=== PATIENT | male | born 1935 | race Caucasian/White ===

== ENCOUNTER → 2016-07-07 | Outpatient (CLI) | payer OTHER, MEDICARE ==
[~2016-07-07] MED LIST: ASPCH81; B-COCAP2 PO; CHOL100010 PO; CRD4; GLC5 PO; GLC500; INSDGIPEN SC; LEVO125T7; LOSA50TA6 PO; LOVA20TA4; METO25TA3; PRAV20TA PO; PRS5 PO; TAMS0.4C59 PO
--- NOTE | 2016-07-11 12:35 | CODING QUERY MEDICAL NECESSITY ---
SUPPORTING DIAGNOSIS NEEDED A supporting diagnosis is required for the test/procedure performed on this patient in order for us to be reimbursed by the patient's insurance. Please provide a supporting diagnosis for the following test/procedure listed below next to the test name along with your signature. *If there is no additional diagnosis for this patient that would support the following test/procedure please document that below next to the test/procedure. Test(s)/Procedure(s) that require a supporting diagnosis: DOS 07/07 * Factor V Leiden DIAGNOSIS: Provider Signature: Date: Thank you Darby Subramanian Health Information Management Once completed, please kindly fax back to [phone] For questions please call [phone]
== END | disposition home or self-care (01) ==
LOC: C.LABBC 09:03
PROVIDERS: ATTEND Family Medicine
DX: Z83.2 Family history of diseases of the blood and blood-forming organs and certain disorders involving the immune mechanism (principal)

== ENCOUNTER → 2016-07-09 | Outpatient (CLI) | payer OTHER, MEDICARE ==
[2016-07-09 11:16] LABS: BLOOD UREA NITROGEN 17 mg/dl (7-18); BUN/CREATININE RATIO 14.3 (10-20); CARBON DIOXIDE 29 mmol/L (21-32); CHLORIDE 103 mmol/L (98-107); GLUCOSE 138 mg/dl (70-99); POTASSIUM 4.2 mmol/L (3.5-5.1); SODIUM 141 mmol/L (136-145)
[2016-07-09 11:20] LABS: ESTIMATED AVERAGE GLUCOSE 192 mg/dl; HA1C FLAG Normal (Normal)
[2016-07-09 11:23] LABS: CALCIUM 9.5 mg/dl (8.5-10.1)
[2016-07-09 11:26] LABS: ALT/SGPT 50 U/L (12-78); CHOLESTEROL 133 mg/dl (0-200); CHOLESTEROL/HDL RATIO 3.1; HDL CHOLESTEROL 43 mg/dl; LDL CHOLESTEROL CALCULATED 41 mg/dl; THYROID STIMULATING HORMONE 0.492 uIu/ml (0.300-4.500); TRIGLYCERIDES 246 mg/dl (0-150); VERY LOW DENSITY LIPOPROT CALC 49 mg/dl
== END | disposition home or self-care (01) ==
LOC: C.LABBC 08:13
PROVIDERS: ATTEND Family Medicine
DX: E11.9 Type 2 diabetes mellitus without complications (principal); E78.00 Pure hypercholesterolemia, unspecified; I10 Essential (primary) hypertension; E03.9 Hypothyroidism, unspecified

== ENCOUNTER → 2016-10-14 | Outpatient (CLI) | payer OTHER, MEDICARE ==
[2016-10-14 11:16] LABS: BLOOD UREA NITROGEN 22 mg/dl (7-18); BUN/CREATININE RATIO 15.8 (10-20); CALCIUM 9.3 mg/dl (8.5-10.1); CARBON DIOXIDE 25 mmol/L (21-32); CHLORIDE 105 mmol/L (98-107); GLUCOSE 277 mg/dl (70-99); POTASSIUM 4.4 mmol/L (3.5-5.1); SODIUM 137 mmol/L (136-145)
[2016-10-14 11:19] LABS: ESTIMATED AVERAGE GLUCOSE 200 mg/dl; HA1C FLAG Normal (Normal)
== END | disposition home or self-care (01) ==
LOC: C.LABBC 08:07
PROVIDERS: ATTEND Urology
DX: E11.9 Type 2 diabetes mellitus without complications (principal); N40.0 Benign prostatic hyperplasia without lower urinary tract symptoms

== ENCOUNTER → 2017-03-24 | Outpatient (CLI) | payer OTHER, MEDICARE ==
[2017-03-24 11:40] LABS: HEMOGLOBIN A1C 8.9 % (4.5-5.6)
[2017-03-24 12:07] LABS: ALT/SGPT 45 U/L (12-78); BLOOD UREA NITROGEN 12 mg/dl (7-18); CALCIUM 9.3 mg/dl (8.5-10.1); CARBON DIOXIDE 32 mmol/L (21-32); GLUCOSE 128 mg/dl (70-99); SODIUM 137 mmol/L (136-145)
[2017-03-24 12:21] LABS: CHOLESTEROL 135 mg/dl (0-200); LDL CHOLESTEROL CALCULATED 53 mg/dl
== END | disposition home or self-care (01) ==
LOC: C.LABBC 08:17
PROVIDERS: ATTEND Family Medicine
DX: E11.9 Type 2 diabetes mellitus without complications (principal); E78.00 Pure hypercholesterolemia, unspecified; E03.9 Hypothyroidism, unspecified

== ENCOUNTER 2022-03-31 08:15 | Observation (INO) ==
--- NOTE | 2022-03-24 11:01 | Anesthesiology Consultation ---
Date of Service March 24, 2022 Assessment & Plan (1) Encounter for pre-operative examination: Chart Review Chart Review: Acceptable Risk for Surgery and Patient NOT seen in Pre Admission Testing - Check BSG AM DOS -COVID screening: Per PAT nursing assessment on 03/24/22. No known COVID-19 positive contacts or current COVID-19 related symptoms. Travel screen negative. Patient vaccinated for Covid. At surgeon discretion if preop Covid testing being done. History Surgery Operation Date: 03/31/22 11:10 Proposed Procedures p Photoselective Vaporization Prostate using the Greenlight Laser - Luis F Burgess, Height/Weight Height: 5 ft 9 in Weight: 86.183 kg Allergies Allergy/AdvReac Type Severity Reaction Status Date / Time lisinopril Allergy Intermediate muscle Verified 03/24/22 09:49 pain, rash Medications Home Medications Medication Instructions Recorded Confirmed Last Taken rosuvastatin 5 mg tablet 2.5 mg PO QPM 10/23/18 03/24/22 02/16/19 cinnamon bark 500 mg capsule 500 mg PO BID 10/25/18 03/24/22 02/17/19 (Cinnamon) omega-3 fatty acids 1,000 mg 1,200 mg PO QAM 10/25/18 03/24/22 02/17/19 capsule vitamin B complex (B 1 tab PO QAM 10/25/18 03/24/22 02/17/19 Complex-Vitamin B12 tablet) desonide 0.05 % topical ointment 1 appln topical BID PRN PRN #1 g 02/16/19 03/24/22 Unknown albuterol sulfate 90 mcg/actuation 2 puffs inhalation Q6H PRN 02/17/19 03/24/22 Unknown aerosol inhaler (Ventolin HFA) shortness of breath or wheezing #8 grams aspirin 81 mg tablet,delayed 81 mg PO QAM 02/17/19 03/24/22 02/17/19 release blood sugar diagnostic (MyDocTouch #100 ea 10/29/21 03/24/22 Unknown Ultra Test strips) blood-glucose meter (OneTouch #1 ea 10/29/21 03/24/22 Unknown Ultra2 Meter kit) lancets (MyDocTouch UltraSoft #100 ea 10/29/21 03/24/22 Unknown Lancets) semaglutide 0.25 mg or 0.5 mg (2 0.5 mg subcut WK 12/18/21 03/24/22 Unknown mg/1.5 mL) subcutaneous pen injector (Ozempic) insulin glargine 100 unit/mL (3 35 - 40 unit subcut BID 01/09/22 03/24/22 Unknown mL) subcutaneous pen (Lantus Solostar U-100 Insulin) metformin 1,000 mg tablet 1,000 mg PO BID #180 tabs 01/24/22 03/24/22 Unknown metoprolol tartrate 50 mg tablet 50 mg PO BID #180 tabs 01/24/22 03/24/22 Unknown ascorbic acid (vitamin C) 1,000 mg 1,000 mg PO QAM 03/24/22 03/24/22 Unknown tablet,extended release (Vitamin C ER) finasteride 5 mg tablet 5 mg PO QAM 03/24/22 03/24/22 Unknown levothyroxine 175 mcg tablet 175 mcg PO QAM 03/24/22 03/24/22 Unknown potassium 99 mg tablet 99 mg PO Q OTHER DAY 03/24/22 03/24/22 Unknown tamsulosin 0.4 mg capsule (Flomax) 0.4 mg PO QAM 03/24/22 03/24/22 Unknown Past Medical History Medical History (Updated 03/24/22 @ 11:05 by Purnima Pisano PA-C) Anemia Stable Asthma rare res inh use > can't remember last use BPH (benign prostatic hyperplasia) CKD (chronic kidney disease) stage 3, GFR 30-59 ml/min Diabetes mellitus type 2, insulin dependent Uses dexcom Diabetic peripheral neuropathy Factor V Leiden mutation Heterozygous; no hx of DVT or PE with patient (sister was dx'ed with Factor V mutation which prompted patient to get tested), no AC needed per 2017 heme note HTN, goal below 140/90 Hypercholesterolemia Hypothyroidism Prostatic hyperplasia Rhinitis, nonallergic Sensorineural hearing loss (SNHL) of both ears Past Family History Family History Unknown Diabetes Heart disease History of nephrolithiasis Mother Diabetes Breast cancer Colorectal cancer Father Myocardial infarction Sister Factor V Leiden mutation Denies family history of Ovarian cancer Prostate cancer Past Surgical History Surgical History History of cataract surgery bilat History of colonoscopy History of tooth extraction Hx of melanoma excision back S/P prostatectomy S/P wisdom tooth extraction Social History Smoking Status: Former smoker tobacco type: cigarettes Do You Dip or Chew Tobacco: No Smoking End Date: age 50 Hx Alcohol Use: Yes Alcohol type: beer, wine and hard liquor alcohol intake frequency: a few times a month Hx Substance Use: No substance use type: does not use Lab Results Anesthesia Preop Results Results Anesthesia Widget: WBC 6.59 K/ul (4.8-10.8) 03/21/22 Hgb 12.0 g/dl (14.0-18.0) L 03/21/22 Hct 35.5 % (40.1-51.0) L 03/21/22 Plt 215 K/uL (130-400) 03/21/22 Na 136 mmol/L (136-145) 03/21/22 K 4.1 mmol/L (3.5-5.1) 03/21/22 Cl 102 mmol/L (98-107) 03/21/22 CO2 25 mmol/L (21-32) 03/21/22 BUN 19 mg/dl (6-23) 03/21/22 Creat 1.23 mg/dl (0.6-1.4) 03/21/22 Glucose Level 264 mg/dl (70-99(Fasting)) H 03/21/22 Testing Laboratory Results 03/21/22= URINE CULTURE: No growth 12/30/21= HGB A1C: 7.2 Electrocardiogram Date: 03/21/22 Sinus rhythm with first-degree AV block with occasional PVCs and PACs at 77 bpm Inferior infarct (cited on or before February 17, 2019) When compared to EKG from February 17, 2019PACs are now present, ME has increased per cardio Chest X-Ray Date: 03/21/22 Findings: + NAD
[~2022-03-31 08:15] MED LIST changes: -ASPCH81; -B-COCAP2 PO; -CHOL100010 PO; -CRD4; -GLC5 PO; -GLC500; -INSDGIPEN SC; -LEVO125T7; -LOSA50TA6 PO; -LOVA20TA4; +LR 15ML/HR IV SCH; -METO25TA3; -PRAV20TA PO; -PRS5 PO; -TAMS0.4C59 PO; +ceFAZolin 2000MG 2,000 MG/15 ML SYR IV SCH
[2022-03-31] MEDS ORDERED: BELLADONNA/OPIUM SUPP 60 MG SUPP PR PRN (09:06)
[2022-03-31] MEDS ORDERED: oxyCODONE/ACETAMINOPHEN 5mg/325mg TAB PO PRN (09:06)
[2022-03-31] MEDS ORDERED: PHENAZOPYRIDINE HCL 200 MG TAB PO PRN (09:06)
[2022-03-31] MEDS ORDERED: MoRPHine SULFATE 2 MG/ML CARP IV PRN (09:06)
[2022-03-31] MEDS ORDERED: ONDANSETRON INJ 2 MG/ML 2 ML VIAL IV PRN ×2 (09:06→09:41)
--- NOTE | 2022-03-31 09:06 | History & Physical Bridge Note ---
Date of Service March 31, 2022 History & Physical Bridge Note I have examined the patient, reviewed the History & Physical and in the interval since the performance of the History & Physical I have noted the following changes of clinical significance: no changes noted
[2022-03-31] MEDS ORDERED: ALBUTEROL HFA 8 GM INHALER INH PRN (09:13)
[2022-03-31] MEDS ORDERED: ceFAZolin 2000MG 2,000 MG/15 ML SYR IV SCH (09:15)
[2022-03-31] MEDS ORDERED: fentaNYL citrate 100 MCG/2 ML VIAL ONE ×2 (09:35→11:18)
[2022-03-31] MEDS ORDERED: ATROPINE SULFATE 0.1 MG/ML 10ML SYR IV PRN (09:41)
[2022-03-31] MEDS ORDERED: PROMETHAZINE HCL 12.5 MG in SODIUM CHLORIDE 0.9% 50 ML IV PRN (09:41)
[2022-03-31] MEDS ORDERED: fentaNYL citrate 100 MCG/2 ML VIAL IV PRN (09:41)
[2022-03-31] MEDS ORDERED: ePHEDrine sulfate 50 MG/ML AMP IV PRN (09:41)
[2022-03-31] MEDS ORDERED: HYDROmorphone INJ 2 MG/ML SYR/VIAL IV PRN (09:41)
[2022-03-31] MEDS ORDERED: LIDOCAINE 2% MPF LOCAL 5 ML VIAL INFIL ONE (10:33)
[2022-03-31] MEDS ORDERED: ONDANSETRON INJ 2 MG/ML 2 ML VIAL ONE (10:33)
[2022-03-31] MEDS ORDERED: PROPOFOL IV EMULSION 10 MG/ML 20 ML VIAL IV ONE (10:33)
[2022-03-31] MEDS ORDERED: ePHEDrine sulfate 50 MG/ML SYR ONE (10:34)
[2022-03-31] MEDS ORDERED: PHENYLEPHRINE 100MCG/ML 5ML SYR ONE (10:34)
[2022-03-31 10:37] LABS: Basophils # (auto) 0.06 K/uL (0-0.2); Basophils % (auto) 0.7 %; Eosinophils % (auto) 4.5 %; Hematocrit (blood only) 37.2 % (40.1-51.0); Hemoglobin 12.9 g/dl (14.0-18.0); Immature Granulocytes # (auto) 0.23 K/uL (0.00-0.02); Immature Granulocytes % (auto) 2.6 %; Lymphocytes % (auto) 27.2 %; Mean Corpuscular Hemoglobin 30.5 pg (25.0-34.0); Mean Corpuscular Hgb Conc 34.7 g/dL (32.0-36.0); Mean Corpuscular Volume 87.9 fL (80.0-100.0); Mean Platelet Volume 10.7 fL (9.4-12.4); Monocytes # (auto) 0.42 K/uL (0.24-0.82); Monocytes % (auto) 4.8 %; Neutrophils # (auto) 5.32 K/uL (1.4-6.5); Neutrophils % (auto) 60.2 %; Platelet Count 227 K/uL (130-400); RDW Coefficient of Variation 13.7 % (11.5-14.5); RDW Standard Deviation 43.5 fL (36.4-46.3); Red Blood Count 4.23 M/uL (4.63-6.08); White Blood Count 8.83 K/ul (4.8-10.8)
[2022-03-31 11:00] LABS: Albumin Globulin Ratio 1.5 (0.9-2); Albumin Level 4.1 gm/dl (3.4-5.0); BUN Creatinine Ratio 13.5 (10-20); Bilirubin,Total 0.5 mg/dl (0.2-1.0); Calcium 9.2 mg/dl (8.5-10.1); Creatinine Clr Calc Pharmacy 43.6 ml/min; Est GFR (African American) 60.3 ml/min; Globulin 2.7 gm/dl (2.5-4.0); Potassium 4.1 mmol/L (3.5-5.1); Total Protein 6.8 gm/dl (6.0-8.3)
[2022-03-31] MEDS ORDERED: BELLADONNA/OPIUM SUPP 60 MG SUPP PR ONE ×2 (11:57→12:01)
--- NOTE | 2022-03-31 12:15 | Operative Report ---
PG Post Operative Report Pre & Post Diagnosis Operation Date: 03/31/22 10:00 Pre-Op Diagnosis: Incomplete Emptying Bladder Prostatic Hyperplasia Post-Op Diagnosis: Incomplete Emptying Bladder Prostatic Hyperplasia I identified the patient and participated in the time-out.: Yes Procedure Operation Date: 03/31/22 10:00 Actual Procedures p Photoselective Vaporization of the Prostate (PVP) Using the Greenlight Laser with Laser enucleation of prostate (Not Applicable) - Luis F Burgess, Surgeon Luis F Burgess, II, DO Public Health Clinical Nurse Specialist None Estimated Blood Loss 5 Findings Consistent with Post-Op Diagnosis Large regrowth of Prostate with obstruction. 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 Had PVP in past and irregular regrowth causing obstruction. Risks and benefits discussed at length. Description of Procedure Patient was consented and brought back to the operating room. Patient was placed under anesthesia in the supine position and moved to the dorsal lithotomy position. Patient was prepped and draped in the regular sterile fashion. A time out was completed. A 30degree Cystoscope was placed into the bladder and the entire bladder was examined. The UO's were identified as well as the bladder neck, trigone, dome, and the other important landmarks. The prostatic urethra and large lobes/adenoma was assessed and the veru and bladder neck identified and area/size was assessed. Significant regrowth at the lateral lobes and median lobe with irregular distribution. The cystoscope with laser bridge and the Greenlight laser fiber were selected. Starting at the 5 and 7 o'clock positions, a channel was created from bladder neck to the veru. A channel was further formed between the two areas. No major bleeding or areas of concern. The resection then started at the 1 and 11 oclock positions and swept down to the channel. The tissue was resected down to capsule fibers. The UO's, veru, and bladder neck were monitored throughout the process. Along the left lateral lobe, a significant bulge of regrowth was noted and was able to be isolated and enucleated in two pieces. The Adenoma pieces were enucleated sweeping down along the capsule to the 5 o'clock position. The tissue was freed and displaced into the bladder. All bleeding was controlled. Two large pieces were enucleated. The Specimen was removed and sent for analysis. The resection bed and any bleeding areas were fulgurated/cauterized and the entire area inspected. All bleeding was controlled. The bladder was inspected a final time. The bladder was emptied and irrigated. All specimen and debris was removed. The scope was removed with the bladder partially full. A catheter was placed and balloon elevated. This was easily irrigated. The patient was cleaned, aroused from anesthesia, and transferred to the pacu in stable condition having tolerated the procedure well with no complications. I was present and participated in all aspects of the procedure. A belladonna and opium suppository was placed. The patient will be monitored in the PACU until transferred. Will observe overnight with plans to continue CBI through night. Will plan catheter removal likely in approx 1-2 weeks. I attest to the content of the Intraoperative Record and any orders documented therein. Any exceptions are noted below.
--- NOTE | 2022-03-31 13:27 | Anesthesiology Progress Note ---
Date of Service March 31, 2022 Anesthesia Post Procedure Vital Signs Vital Signs: Temp Pulse Pulse Resp BP Pulse Ox O2 Del Method 03/31/22 12:55 36.4 C L 72 14 145/83 H 95 Room Air 03/31/22 12:45 75 19 155/75 H 96 Room Air 03/31/22 12:35 79 14 147/68 H 95 Room Air 03/31/22 12:25 82 18 153/81 H 100 Oxymask 03/31/22 12:16 36.0 C L 88 16 100/60 98 Oxymask 03/31/22 08:51 36.4 C L 70 20 123/73 O2 Flow Rate 03/31/22 12:55 03/31/22 12:45 03/31/22 12:35 03/31/22 12:25 7 03/31/22 12:16 7 03/31/22 08:51 Transfer of Care Handoff Completed per policy Notes Mental Status: alert / awake / arousable and participated in evaluation Patient Amnestic to Procedure: Yes Nausea / Vomiting: adequately controlled Pain: adequately controlled Airway Patency, RR, SpO2: stable & adequate BP & HR: stable & adequate Hydration State: stable & adequate Anesthetic Complications: no major complications apparent
[2022-03-31] MEDS ORDERED: DESONIDE CR 15 GM TUBE EXT PRN (14:04)
[2022-03-31] MEDS ORDERED: PHARMACY GLYCEMIC MGMT CONSULT PRN (14:18)
[2022-03-31] MEDS ORDERED: GLUCOSE 40% GEL 15 GM TUBE PO PRN (14:45)
[2022-03-31] MEDS ORDERED: DEXTROSE 50% 50 ML SYRINGE IV PRN (14:45)
[2022-03-31] MEDS ORDERED: CARBOHYDRATES FOR HYPOGLYCEMIA PO PRN (14:45)
[2022-03-31] MEDS ORDERED: GLUCOSE 10 TAB/TUBE PO PRN (14:45)
[2022-03-31] MEDS ORDERED: GLUCAGON FOR INJ 1 MG VIAL IM PRN (14:45)
--- NOTE | 2022-03-31 14:53 | Pharmacy Report ---
Pharmacy Glycemic Short Note 2 - Date of Service March 31, 2022 - Glycemic Short BSG Results (Last 24 hours): 03/31/22 03/31/22 03/31/22 08:59 10:13 12:19 Glucose 117 H POC Glucose 107 H 101 H OUTPATIENT ANTIDIABETIC REGIMEN: * Lantus 30-40 units bid, metformin, ozempic ASSESSMENT: * 86 year old male now s/p cystoscopy, POD 0 - Patient is type 2 diabetic managed on insulin at home. Per notes, patient took full dose of basal insulin last night * Fasting BSG 107 mg/dL - anticipate diet starting postop. Post op BSG 101 mg/dL - will utilize stress of 2 for novolog for now. Plan to start Lantus 10-20 units BID starting this evening PLAN FOR INPATIENT GLYCEMIC CONTROL: * Hold outpatient oral diabetes medications * Basal insulin * Lantus 10-20 units SQ BID * Bolus insulin * NovoLog per scale ACHS or Q6hrs while NPO * Goal Range: Low 110 mg/dL - High 140 mg/dL * Correction Factor: 30 mg/dL/unit * Nutritional / Prandial insulin per carb ratio of 1 unit per 10 grams CHO consumed
--- NOTE | 2022-03-31 15:06 | Hospitalist Consultation ---
Date of Consultation March 31, 2022 Assessment & Plan (1) BPH w urinary obs/LUTS: - s/p photoselective vaporization of prostate, POD #0, EBL 5cc, no complications, with continuous CBI overnight. - Pain/ABX/IVF/diet/drain management/transfusion needs/activity per primary team - Rescue Narcan ordered for over sedation PRN - VTE prophylaxis per primary service- SCDs in place - CBC and BMP in AM. - Baseline renal function: Cr 1.23, GFR 531/6 - Baseline Hgb: 12.0 on 03/21 - Continue Flomax, finasteride. (2) Diabetes mellitus type 2, insulin dependent: - [employer]--> Lantus BID, metformin, ozempic. - glycemic consult placed, hold home meds. - Lantus 10-20 units BID with SSI goal 110-140, CF 30, CR 10. (3) CKD (chronic kidney disease) stage 3, GFR 30-59 ml/min: - Cr 1.26, GFR 52. - Avoid nephrotoxins, renally dose medications as able. - BMP in AM. (4) Factor V Leiden mutation: - No history fo DVT/PE. Tested due to familial history of such. (5) HTN, goal below 140/90: - Continue metoprolol. (6) Hypercholesterolemia: - Continue rosuvastatin. (7) Hypothyroidism: - Continue levothyroxine. (8) Anemia: - Hg 12.9, stable with outpatient labs. - Monitor on CBC in AM. Supervising Physician Co-Signing Physician Notes I personally saw and examined the patient. I verified all martin points and agree with Lashonda Barnard PA-C with the following exceptions and/or additions: 86-year-old male POD#0 Photoselective Vaporization of the Prostate (PVP) Using the Greenlight Laser with Laser enucleation of prostate O/E A&Ox3, HS1+2, no murmurs, RRR, Chest CTAB, Abdo SNT A/P Patient currently prescribed Flomax but no finasteride. Will defer this to his urologist. Pharmacy consulted for glycemic control. Vital signs acceptable. Thank you for the consult. We will continue to see patient while he is admitted. History of Present Illness Reason for Consultation: post-op medical management Requesting Physician: Luis F Burgess II, DO Attending Physician: Luis F Burgess II, DO History of Present Illness Rob Olvera is an 86-year-old male with a past medical history significant for insulin-dependent diabetes, hypertension, hyperlipidemia factor V Leiden deficiency, CKD, BPH, and hypothyroidism who was admitted today, 03/31 for a photo selective vaporization of the prostate with Dr. Burgess. Hospitalist group was consulted for post-operative medication management. Today, he is POD#0 and feels well. Denies fever/chills, weakness, chest pain, palpitations, shortness of breath, cough, orthopnea, abdominal pain, nausea, vomiting, dysuria. Allergies Allergy/AdvReac Type Severity Reaction Status Date / Time lisinopril Allergy Intermediate muscle Verified 03/31/22 08:58 pain, rash Home Medications Medication Instructions Recorded Confirmed Type rosuvastatin 5 mg tablet 2.5 mg PO QPM 10/23/18 03/31/22 History cinnamon bark 500 mg capsule 500 mg PO BID 10/25/18 03/31/22 History (Cinnamon) omega-3 fatty acids 1,000 mg 1,200 mg PO QAM 10/25/18 03/31/22 History capsule vitamin B complex (B 1 tab PO QAM 10/25/18 03/31/22 History Complex-Vitamin B12 tablet) desonide 0.05 % topical ointment 1 appln topical BID PRN PRN #1 g 02/16/19 03/31/22 History albuterol sulfate 90 mcg/actuation 2 puffs inhalation Q6H PRN 02/17/19 03/31/22 Rx aerosol inhaler (Ventolin HFA) shortness of breath or wheezing #8 grams aspirin 81 mg tablet,delayed 81 mg PO QAM 02/17/19 03/31/22 History release blood sugar diagnostic (OneTouch #100 ea 10/29/21 03/24/22 Rx Ultra Test strips) blood-glucose meter (OneTouch #1 ea 10/29/21 03/24/22 Rx Ultra2 Meter kit) lancets (TongbanjieTouch UltraSoft #100 ea 10/29/21 03/24/22 Rx Lancets) semaglutide 0.25 mg or 0.5 mg (2 0.5 mg subcut WK 12/18/21 03/31/22 History mg/1.5 mL) subcutaneous pen injector (Ozempic) insulin glargine 100 unit/mL (3 35 - 40 unit subcut BID 01/09/22 03/31/22 History mL) subcutaneous pen (Lantus Solostar U-100 Insulin) metformin 1,000 mg tablet 1,000 mg PO BID #180 tabs 01/24/22 03/31/22 Rx metoprolol tartrate 50 mg tablet 50 mg PO BID #180 tabs 01/24/22 03/31/22 Rx ascorbic acid (vitamin C) 1,000 mg 1,000 mg PO QAM 03/24/22 03/31/22 History tablet,extended release (Vitamin C ER) finasteride 5 mg tablet 5 mg PO QAM 03/24/22 03/31/22 History levothyroxine 175 mcg tablet 175 mcg PO QAM 03/24/22 03/31/22 History potassium 99 mg tablet 99 mg PO Q OTHER DAY 03/24/22 03/31/22 History tamsulosin 0.4 mg capsule (Flomax) 0.4 mg PO QAM 03/24/22 03/31/22 History cephalexin 500 mg capsule 500 mg PO BID 5 days #10 caps 04/01/22 Rx docusate sodium 100 mg capsule 100 mg PO BID #60 caps 04/01/22 Rx (Colace) Patient History Medical History Anemia Stable Asthma rare res inh use > can't remember last use BPH (benign prostatic hyperplasia) CKD (chronic kidney disease) stage 3, GFR 30-59 ml/min Diabetes mellitus type 2, insulin dependent Uses dexcom Diabetic peripheral neuropathy Factor V Leiden mutation Heterozygous; no hx of DVT or PE with patient (sister was dx'ed with Factor V mutation which prompted patient to get tested), no AC needed per 2017 heme note HTN, goal below 140/90 Hypercholesterolemia Hypothyroidism Prostatic hyperplasia Rhinitis, nonallergic Sensorineural hearing loss (SNHL) of both ears Surgical History History of cataract surgery bilat History of colonoscopy History of tooth extraction Hx of melanoma excision back S/P prostatectomy S/P wisdom tooth extraction Family History Unknown Diabetes Heart disease History of nephrolithiasis Mother Diabetes Breast cancer Colorectal cancer Father Myocardial infarction Sister Factor V Leiden mutation Denies family history of Ovarian cancer Prostate cancer Social History Smoking Status: Former smoker Tobacco Type: Cigarettes Age Started Using Tobacco: 20; Age Quit Using Tobacco: 40; packs per day: 1; Second Hand Exposure: No; Hx Alcohol Use: Yes Alcohol type: beer, wine and hard liquor Alcohol Intake Frequency: 2-3 x/Week Hx Substance Use: No Preferred Language: Nepalese Communication Ability: Effective Visual Impairment: No Limitations Hearing Ability: Use of Hearing Aid Real Estate Manager Required: No Beliefs That Will Affect Care: None marital status: Current Living Situation: Spouse current occupational status: retired 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 Feels Safe at Home: Yes Childhood Exposure to Second-Hand Smoke: Yes Dental Care, Regularly: Yes Physical Activity Frequency: 3-4 Times per Week Seatbelt Use: always Sunscreen Use: Yes Assistive Devices: Glasses and Hearing Aid - Bilateral Review of Systems Review of Systems: Constitutional: No fever/chills, weakness, fatigue, myalgias, anorexia, night sweats Eyes: No diplopia, no worsening or blurred vision ENT: normal hearing, no trouble swallowing Respiratory: No cough, sputum, dyspnea at rest or on exertion Cardiovascular: No chest pain, tightness or palpitations Abdomen: No pain, nausea, vomiting, diarrhea or constipation : Denies dysuria, hematuria, increased urgency/frequency, urinary retention Musculoskeletal: No joint pain, calf pain, swelling Neurologic: No weakness, numbness/tingling, or balance problems Psychiatric: No anxiety or depression Skin: No rash or itch Physical Exam Physical Exam: General: awake, alert, no apparent distress Head: Normocephalic, atraumatic ENT: PERRL, EOMI, no pharyngeal exudate, mucous membranes moist Chest: Clear to auscultation, on room air, no adventitious breath sounds Cardiac: Regular rate and rhythm, no murmur, no JVD, normal peripheral pulses, good capillary refill Abdominal: NABS x 4 quadrants, soft, nontender to palpation, no rebound, guarding or tenderness Extremities: Normal inspection, no peripheral edema or erythema, calfs nontender to palpation Psych: Normal mood and affect Neuro: AAO x 3, strength intact bilaterally and rated 5/5, no motor deficits, speech is clear, no peripheral sensory deficits Skin: no rash or erythema Results & Data Results & Data ([facility]) Vital Signs (Past 12 Hours) Vital Signs Temp Pulse Pulse Resp BP Pulse Ox O2 Del Method 03/31/22 13:25 73 12 133/78 94 Room Air 03/31/22 12:55 36.4 C L 72 14 145/83 H 95 Room Air 03/31/22 12:45 75 19 155/75 H 96 Room Air 03/31/22 12:35 79 14 147/68 H 95 Room Air 03/31/22 12:25 82 18 153/81 H 100 Oxymask 03/31/22 12:16 36.0 C L 88 16 100/60 98 Oxymask 03/31/22 08:51 36.4 C L 70 20 123/73 O2 Flow Rate 03/31/22 13:25 03/31/22 12:55 03/31/22 12:45 03/31/22 12:35 03/31/22 12:25 7 03/31/22 12:16 7 03/31/22 08:51 Laboratory Results Abnormal lab results 03/31/22 03/31/22 03/31/22 Range/Units 08:59 10:13 10:13 RBC 4.23 L (4.63-6.08) M/uL Hgb 12.9 L (14.0-18.0) g/dl Hct 37.2 L (40.1-51.0) % Immature Gran # (Auto) 0.23 H (0.00-0.02) K/uL Glucose 117 H (70-99(Fasting)) mg/dl POC Glucose 107 H (70-99) mg/dl 03/31/22 Range/Units 12:19 RBC (4.63-6.08) M/uL Hgb (14.0-18.0) g/dl Hct (40.1-51.0) % Immature Gran # (Auto) (0.00-0.02) K/uL Glucose (70-99(Fasting)) mg/dl POC Glucose 101 H (70-99) mg/dl PG Care Time/CCT Total # of Minutes Spent Total Time Spent with Patient: Total time spent is greater than 50% in coordination of care (as documented) at patient's floor/unit and/or counseling patient: Coding Level of Care Code INP/OBS CONSULT LVL 3, 45 MIN Diagnoses BPH w urinary obs/LUTS N40.1; N13.8 Diabetes mellitus type 2, insulin dependent E11.9; Z79.4 CKD (chronic kidney disease) stage 3, GFR 30-59 ml/min N18.3 Factor V Leiden mutation D68.51 HTN, goal below 140/90 I10 Hypercholesterolemia E78.00 Hypothyroidism E03.9 Anemia D64.9
[2022-03-31] MEDS: SODIUM CHLORIDE 0.9% 1000ML 1,000 ML IV SCH (16:31)
[2022-03-31] MEDS: ceFAZolin 2000MG 2,000 MG/15 ML SYR IV SCH (17:08)
[2022-03-31] MEDS: INSULIN ASPART PER UNIT SC SCH ×2 (17:15→21:23)
[2022-03-31] MEDS ORDERED: LANTUS PER UNIT CHARGE SQ SCH (21:00)
[2022-03-31] MEDS ORDERED: ROSUVASTATIN CALCIUM 5 MG TAB PO SCH (21:00)
[2022-03-31] MEDS: METOPROLOL TARTRATE 50 MG TAB PO SCH (21:22)
[2022-03-31] MEDS: DOCUSATE SODIUM 100 MG CAP PO SCH (21:22)
[2022-04-01] MEDS: ceFAZolin 2000MG 2,000 MG/15 ML SYR IV SCH ×2 (00:50→08:52)
[2022-04-01] MEDS: SODIUM CHLORIDE 0.9% 1000ML 1,000 ML IV SCH (07:17)
--- NOTE | 2022-04-01 08:28 | Pharmacy Report ---
Pharmacy Glycemic Short Note 2 - Date of Service April 01, 2022 - Glycemic Short BSG Results (Last 24 hours): 03/31/22 03/31/22 03/31/22 08:59 10:13 12:19 Glucose 117 H POC Glucose 107 H 101 H 03/31/22 03/31/22 04/01/22 16:46 21:02 07:49 Glucose POC Glucose 94 117 H 138 H OUTPATIENT ANTIDIABETIC REGIMEN: * Lantus 30-40 units bid, metformin, ozempic ASSESSMENT: 04/01 * Patient received total of 19 units of insulin yesterday, of which 15 units were basal insulin * Fasting BSG 138 mg/dL - will slowly titrate basal insulin today as I anticipate PO intake to increase further * No change to CF/CR today 03/31 * 86 year old male now s/p cystoscopy, POD 0 - Patient is type 2 diabetic managed on insulin at home. Per notes, patient took full dose of basal insulin last night * Fasting BSG 107 mg/dL - anticipate diet starting postop. Post op BSG 101 mg/dL - will utilize stress of 2 for novolog for now. Plan to start Lantus 10-20 units BID starting this evening PLAN FOR INPATIENT GLYCEMIC CONTROL: * Hold outpatient oral diabetes medications * Basal insulin * Lantus 10 units SQ BID * Bolus insulin * NovoLog per scale ACHS or Q6hrs while NPO * Goal Range: Low 110 mg/dL - High 140 mg/dL * Correction Factor: 30 mg/dL/unit * Nutritional / Prandial insulin per carb ratio of 1 unit per 10 grams CHO consumed
--- NOTE | 2022-04-01 08:38 | Urology Progress Note ---
Date of Service April 01, 2022 Assessment & Plan (1) BPH w urinary obs/LUTS: (2) Incomplete emptying of bladder: Plan: - Pt POD#1 s/p Photoselective Vaporization of the Prostate (PVP) with Dr. Burgess. - Doing well, progressing as expected. - Afebrile, tolerating PO diet. - 3 way Perea catheter intact, patent and draining clear yellow urine with CBI on slow. - CBI clamped @0800 - will reassess later this AM. Plan to d/c CBI if urine remains appropriate. - Maintain Perea catheter. - Anticipate home with Perea catheter later today presuming urine appropriate and he continues to progress as expected. - Expected clinical course reviewed, all questions answered. - Will arrange outpatient follow-up with our service for voiding trial. - Patient reassessed at 0915 - urine remains yellow with CBI clamped. Patient is ready for discharge noworders placed. Admission and Anticipated Discharge Date Admission Date: March 31, 2022 Subjective Patient seen and examined at bedside this morning he is awake, alert and sitting up at the side of the bed. No acute issues overnight. Offers no complaints at present. Tolerating p.o. diet. Perea intact and draining clear yellow urine with CBI on slow. CBI clamped at 8:00. No nausea or vomiting. No fever or chills. Review of Systems Constitutional: as per Subjective / HPI Gastrointestinal: as per Subjective / HPI Genitourinary: + as per Subjective / HPI Physical Exam Constitutional: well developed and well nourished; no acute distress Respiratory: normal respiratory effort; no respiratory distress and no labored breathing Cardiovascular: Extremities: no pedal edema Gastrointestinal (Abdomen): Inspection/Auscultation: abdomen normal to inspection; abdomen not distended Neurologic: moves all extremities and awake Psychiatric: Orientation: alert and oriented x 3 Genitourinary: Perea intact and draining clear yellow urine with CBI on slow. CBI clamped at 0800. Results & Data ([facility]) Vital Signs (Past 12 Hours) Vital Signs Temp Pulse Pulse Resp BP BP Pulse Ox 04/01/22 07:57 04/01/22 07:23 70 04/01/22 02:44 36.8 C 64 16 107/69 94 03/31/22 22:01 90 03/31/22 23:11 36.7 C 69 16 106/60 97 O2 Del Method 04/01/22 07:57 Room Air 04/01/22 07:23 04/01/22 02:44 Room Air 03/31/22 22:01 03/31/22 23:11 Room Air PG Care Time/CCT Total # of Minutes Spent Total Time Spent with Patient: Total time spent is greater than 50% in coordination of care (as documented) at patient's floor/unit and/or counseling patient: Coding Level of Care Code None Diagnoses BPH w urinary obs/LUTS N40.1; N13.8 Incomplete emptying of bladder R33.9
[2022-04-01] MEDS: INSULIN ASPART PER UNIT SC SCH (08:49)
[2022-04-01] MEDS: METOPROLOL TARTRATE 50 MG TAB PO SCH (08:51)
[2022-04-01] MEDS: DOCUSATE SODIUM 100 MG CAP PO SCH (08:52)
[2022-04-01] MEDS ORDERED: TAMSULOSIN HCL 0.4 MG CAP PO SCH (09:00)
[2022-04-01] MEDS ORDERED: ASCORBIC ACID 500 MG TAB PO SCH (09:00)
[2022-04-01] MEDS ORDERED: LANTUS PER UNIT CHARGE SQ SCH (09:00)
[2022-04-01] MEDS ORDERED: LEVOTHYROXINE SODIUM 175 MCG TABLET PO SCH (09:00)
--- NOTE | 2022-04-01 09:48 | Discharge Summary ---
Date of Service April 01, 2022 Admission HPI Per Admitting Provider Patient with BPH with severe lower urinary tract symptoms and prior history of TURP/greenlight photo vaporization here for photovaporization of prostate. Admission Exam Per Admitting Provider General: Alert in no acute distress. HEENT: Normocephalic Atraumatic. Inspection normal. Psychologic: Normal affect. Respiratory: Nonlabored. Cardiovascular: No tachycardia Skin: [place] and Dry. Principal Diagnosis BPH with LUTS Discharge Exam Constitutional well developed and well nourished; no acute distress Respiratory normal respiratory effort; no respiratory distress and no labored breathing Cardiovascular Extremities: no pedal edema Gastrointestinal (Abdomen) Inspection/Auscultation: abdomen normal to inspection; abdomen not distended Neurologic moves all extremities and awake Psychiatric Orientation: alert and oriented x 3 Discharge Data Allergies Allergy/AdvReac Type Severity Reaction Status Date / Time lisinopril Allergy Intermediate muscle Verified 03/31/22 08:58 pain, rash Consultations 03/31/22 09:11 Consult Hospitalist Routine Procedures Performed Operation Date: 03/31/22 10:00 Actual Procedures p Photoselective Vaporization of the Prostate (PVP) Using the [facility] [place](Not Applicable) - Luis F Burgess, DO Hospital Course (1) BPH w urinary obs/LUTS: (2) Incomplete emptying of bladder: - Pt POD#1 s/p Photoselective Vaporization of the Prostate (PVP) with Dr. Burgess. - Doing well, progressing as expected. - Afebrile, tolerating PO diet. - 3 way Perea catheter intact, patent and draining clear yellow urine with CBI on slow. - CBI clamped @0800 - will reassess later this AM. Plan to d/c CBI if urine remains appropriate. - Maintain Perea catheter. - Anticipate home with Perea catheter later today presuming urine appropriate and he continues to progress as expected. - Expected clinical course reviewed, all questions answered. - Will arrange outpatient follow-up with our service for voiding trial. - Patient reassessed at 0915 - urine remains yellow with CBI clamped. Patient is ready for discharge noworders placed. Total Time Total Time Spent Total Time Spent (In Minutes): 29 Discharge Plan Discharge Items Patient Disposition: Home - Self-Care Reason For Visit: Incomplete Emptying Bladder Prostatic Hyperplasia Discharge Diagnosis: Incomplete emptying bladder prostatic hyperplasia Activity: Per Instructions section Lifting: No more than 25 pounds Bathing Comment: Okay to shower after discharge, no tub bath or soaking Sexual Activity: Wait until after follow-up appointment Exercise/Sports: Wait until after follow-up appointment Driving/Machine Use: Resume 1 day after discharge Non-emergency contact: Surgeon and Urologist Call non-emergency contact if: your pain is not controlled, you have a fever and your temperature is above 101 Follow-up/Referrals: Alexa Peterson MD [Primary Care Provider] - 04/08/22 10:20 am Luis F Burgess DO [Physician] - 04/16/22 8:45 am (phone call visit) [facility],Nurse [FAKE FOR SCHEDULES] - 04/10/22 11:30 am Diet: Carb Consistent or DM2 Addtl Attending Provider Instructions: Please take all medications as prescribed and keep all follow-ups as scheduled. Please call our office at [phone] with any questions, concerns or need to reschedule appointments for any reason. We are happy to assist you. You can resume aspirin in 1 to 2 days if urine remains clear to light pink. Tips for your recovery at home: Dont be alarmed by brownish or reddish blood or clots in your urine. This is a result of the procedure. This may occur off and on for weeks to months after the procedure but should continue to improve. Drink plenty of fluids during the day (enough to keep your urine very light colored). This will help keep a healthy flow of urine. Do not lift >25 lbs until your followup Avoid constipation. Please use a stool softener (Colace) for the first two weeks after your procedure Be sure to finish the antibiotics as prescribed. If you go home with a catheter, please wash tubing where it enters your body twice daily with mild soap (Dove or Dial). Once your catheter is removed, expect some blood in your urine and some burning when you urinate. You should have an appointment to have this removed, if you do not please call our office to arrange. Pending Studies at Discharge: Yes Studies:: Pathology Stand-Alone Forms: [employer], Smoking Cessation Medications and DC Order Prescriptions: New cephalexin 500 mg capsule 500 mg PO BID 5 Days Qty: 10 0RF docusate sodium [Colace] 100 mg capsule 100 mg PO BID Qty: 60 0RF Rx Instructions: Take twice daily for 2 weeks, then as needed for constipation. Continued (DME) blood-glucose meter [OneTouch Ultra2 Meter] Kit See Rx Instructions .Route Qty: 1 0RF Rx Instructions: TEST TWICE DAILY OR DIRECTED (DME) OneTouch Ultra Test Strip See Rx Instructions .Route Qty: 100 1RF Rx Instructions: TEST TWICE DAILY OR DIRECTED (DME) lancets [OneTouch UltraSoft Lancets] Misc See Rx Instructions .Route Qty: 100 1RF Rx Instructions: TEST TWICE DAILY OR DIRECTED metformin 1,000 mg tablet 1,000 mg PO BID Qty: 180 1RF metoprolol tartrate 50 mg tablet 50 mg PO BID Qty: 180 1RF rosuvastatin 5 mg tablet 2.5 mg PO QPM cinnamon bark [Cinnamon] 500 mg capsule 500 mg PO BID omega-3 fatty acids 1,000 mg capsule 1,200 mg PO QAM vitamin B complex [B Complex-Vitamin B12] tablet 1 tab PO QAM desonide 0.05 % ointment 1 appln topical BID PRN (Reason: PRN) Qty: 1 Lantus Solostar U-100 Insulin 100 unit/mL (3 mL) insulin pen 35 - 40 unit subcut BID Ozempic 0.25 mg or 0.5 mg(2 mg/1.5 mL) pen injector 0.5 mg subcut WK aspirin 81 mg Tablet,Delayed Release (Dr/Ec) 81 mg PO QAM albuterol sulfate [Ventolin HFA] 90 mcg/actuation HFA aerosol inhaler 2 puffs INH Q6H PRN (Reason: shortness of breath or wheezing) Qty: 8 0RF Vitamin C 1,000 mg Tablet Extended Release 1,000 mg PO QAM potassium 99 mg Tablet 99 mg PO Q OTHER DAY levothyroxine 175 mcg tablet 175 mcg PO QAM tamsulosin [Flomax] 0.4 mg capsule 0.4 mg PO QAM finasteride 5 mg tablet 5 mg PO QAM Discharge Orders: Discharge Order (Routine); Ordered 04/01/22 Ordered By: Divya Gatica Admission Data Admit Date/Time: 03/31/22 09:06 Attending Provider: Luis F Burgess Admit Provider: Burgess,Luis F H. Primary Care Provider: Alexa Peterson Other Providers: Mani Maguire ; Milagro Buitrago ; Tera Hernandez ; Aaron Calderon ; David Ndiaye ; Henry Bill ; David Greenberg ; Poppy Hernandez ; Macey Rubin ; Emile Frey ; Yfn Uriostegui ; Brenna Arauz ; Ray Islas ; Josh Herr ; Lashonda Barnard ; Lucero Senior ; Shahnaz Pruett ; Anil Landis ; Haris Cabrales ; Sena Russo ; Milagro Cordero ; Misti Flores ; Christopher Curtis ; Tera Choudhury ; Ananya Khan ; Jonathan Edmonds ; Sinan Youssef ; Kristina Kitchen ; Mayur Donovan ; Jagruti Mae ; Steven Ferris ; Safia Will ; Farooq Arroyo ; Robert Monroe ; Sadia Helms ; Jerry Ham Other Interventions: Discharge Summary Assessment (RN) Last Done: 04/01/22 10:31 Coding Level of Care Code HOSP INP/OBS DISCH 30 MIN/LESS Diagnoses BPH w urinary obs/LUTS N40.1; N13.8 Incomplete emptying of bladder R33.9
[2022-04-02] MEDS ORDERED: LEVOTHYROXINE SODIUM 175 MCG TABLET PO SCH (06:30)
== END 2022-04-01 11:27 | disposition home or self-care (01) ==
LOC: 2W 08:15 → ASU 08:15

== ENCOUNTER 2023-10-13 21:05 | Inpatient (IN) ==
--- NOTE | 2023-10-13 22:08 | Emergency Department Note ---
Impression & Plan Weakness, Hyponatremia ED Provider Note CHIEF COMPLAINT: Dizzy and weak since Thursday HISTORY OF PRESENT ILLNESS: This 88-year-old male patient presents to the emergency department via private vehicle for evaluation of dizziness and weakness since Thursday. The patient states that on Thursday, he was diagnosed at [facility] with otitis media on the right. He was started on Amoxicillin 875mg BID x10 days and Prednisone x3 days. Pt. states throughout the weekend, he has continued to feel dizzy and weak. He notes tonight, he slid off the couch and didn't feel that he had the strength to pull himself back up. The patient states that the last time he felt like this, he was diagnosed with pneumonia. This was a few months ago. The patient denies any fever or cough. No shortness of breath. No chest pain or abdominal pain. One episode of nausea with vomiting. Patient denies any headache. He states there has been no head injury or trauma. Patient denies any current pain. He denies decreased ability to move his extremities. He states he has been eating and drinking normally. He is using the bathroom without difficulty. REVIEW OF SYSTEMS: A 10 system review of systems was performed with positives and pertinent negatives listed in the history of present illness. All other systems were reviewed and are negative. ALLERGIES: lisinopril, losartan PHYSICAL EXAM: VITALS: Vitals are noted on the nurse's note and reviewed by myself. Vital signs stable. GENERAL: This is an 88 year old male, in no acute distress, nondiaphoretic, well-developed well-nourished. SKIN: The skin was without rashes, erythema, edema, or bruising. There is no tenting of the skin. Capillary refill less than 2 seconds. HEAD: Normocephalic atraumatic. EARS: External auditory canals clear, tympanic membranes pearly domínguez without erythema or effusion bilaterally. No hemotympanum. Negative aguayo sign EYES: Pupils equal round and reactive to light and accommodation. Conjunctivae without injection, sclerae without icterus. Extraocular movements intact. NOSE: Patent, turbinates without inflammation or discharge. No sinus tenderness. MOUTH: Mucous membranes moist. Tonsils are not enlarged. Pharynx without erythema or exudate. Uvula midline. Airway patent. Tongue does not deviate. NECK: Supple without nuchal rigidity. No lymphadenopathy. Cervical spine is nontender. No JVD. HEART: Regular rate and rhythm without murmurs gallops or rubs. LUNGS: Clear to auscultation bilaterally without wheezes, rales or rhonchi. No retractions or accessory muscle use. ABDOMEN: Positive bowel sounds x 4. Soft, nontender, without masses or organomegaly. No guarding or rebound tenderness. MUSCULOSKELETAL: No muscle atrophy, erythema, or edema noted. Full range of motion without joint tenderness in all extremities. No tenderness to palpation. Normal gait. Strength 5/5 throughout. NEURO: Patient was alert and oriented to person place and time. Normal sensation to light and sharp touch. Deep tendon reflexes 2+ throughout. No focal neurological deficits. 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 The monitor showed a normal sinus rhythm at a ventricular rate of 73 bpm, per my interpretation. EKG was reviewed by myself and found to be normal sinus rhythm at a rate of 72 beats per minute and per my interpretation reveals no ST elevation or depression. No T wave inversion. When compared to EKG completed on 06/30/2023, NSR has replaced sinus tachycardia. PACs are no longer present. Chest x-ray. Findings: A chest x-ray was performed and revealed no pneumothorax, effusion, infiltrate, pulmonary edema, free air under the diaphragm, or wide mediastinum, per my interpretation. EMERGENCY DEPARTMENT COURSE: The patient was seen and evaluated as above. The patient presents for weakness and dizziness. This is in the setting of a reported right otitis media. The patient was recently on prednisone and is currently taking amoxicillin for the otitis media. He denies any other pain or symptoms, but was having difficulty ambulating and slid off of the couch onto the floor and was unable to get back up this evening. IV access was obtained, labs were drawn. Labs reviewed. Per interpretation, there is no concerning anemia or thrombocytopenia. No leukocytosis. Renal, hepatic function are without acute abnormality. Patient is hyponatremic with a sodium of 128. Potassium was 4.2. Otherwise, electrolytes were without abnormality. Blood sugar was mildly elevated at 168, though this was not a fasting lab. Troponin is mildly elevated at 21.9. Repeat troponin is pending. Respiratory bio fire testing was negative. Chest x-ray, per my interpretation, without acute abnormality or evidence of pneumonia. Given the patient's ambulatory dysfunction and inability to hold his own weight even while attempting to obtain orthostatic vital signs as well as the hyponatremia, I did recommend inpatient care. I discussed case with the [facility] [address] hospitalist physician. Please see hospitalist dictation regarding ongoing management care of this patient. Case was discussed with the attending physician. I attest that I have personally reviewed the patient medication list. I attest that I have reviewed the patient's blood pressure and it was found to be elevated. Referred to PCP. GCS: 15 In the evaluation and treatment of this patient the following differential diagnoses were entertained: Benign positional vertigo, dehydration, hypovolemia, anemia, tumor, infection, hypoglycemia, electrolyte abnormalities, cardiac sources, intracerebral event, toxicologic, neurologic, viral infection, as well as other pathologies. The chart was completed utilizing [employer] Speech voice recognition software. Grammatical errors, random word insertions, pronoun errors, and incomplete sentences are an occasional consequence of this system due to software limitations, ambient noise, and hardware issues. Any formal questions or concerns about the content, text, or information contained within the body of this dictation should be directly addressed to the provider for clarification. Past Med/Surg History Problem List (Updated 10/14/23 @ 01:39 by Billie Medley PA-C) Hyponatremia (Acute) Weakness (Acute) Aortic stenosis Chest pain History of melanoma in situ BPH w urinary obs/LUTS Anemia Incomplete emptying of bladder Uncontrolled diabetes with stage 3 chronic kidney disease GFR 30-59 (Chronic) Sensorineural hearing loss (SNHL) of both ears (Chronic) Rhinitis, nonallergic (Chronic) Prostatic hyperplasia (Chronic) Hypothyroidism (Chronic) Hypercholesterolemia (Chronic) HTN, goal below 140/90 (Chronic) Factor V Leiden mutation (Chronic) Heterozygous; no hx of DVT or PE with patient (sister was dx'ed with Factor V mutation which prompted patient to get tested), no AC needed per 2017 heme note Diabetic peripheral neuropathy (Chronic) Diabetes mellitus type 2, insulin dependent (Chronic) Uses dexcom CKD (chronic kidney disease) stage 3, GFR 30-59 ml/min (Chronic) Medical History BPH (benign prostatic hyperplasia) Anemia Stable Asthma rare res inh use > can't remember last use Surgical History Hx of melanoma excision History of colonoscopy History of tooth extraction History of cataract surgery S/P prostatectomy S/P wisdom tooth extraction Family History Unknown Diabetes Heart disease History of nephrolithiasis Mother Diabetes Breast cancer Colorectal cancer Father Myocardial infarction Sister Factor V Leiden mutation Denies family history of Ovarian cancer Prostate cancer Social History Smoking Status: Former smoker Tobacco Type: Cigarettes Age Started Using Tobacco: 20; Age Quit Using Tobacco: 40; packs per day: 1; Second Hand Exposure: No; Do You Dip or Chew Tobacco: No; Hx Alcohol Use: Yes Alcohol type: beer, wine and hard liquor Alcohol Intake Frequency: 2-4 x/Month Hx Substance Use: No Preferred Language: Burundian Communication Ability: Effective Visual Impairment: No Limitations Hearing Ability: Use of Hearing Aid Stitch Rubber Required: No Beliefs That Will Affect Care: None marital status: Current Living Situation: Spouse current occupational status: retired 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 Feels Safe at Home: Yes Childhood Exposure to Second-Hand Smoke: Yes Diet: regular Dental Care, Regularly: Yes Physical Activity Frequency: 3-4 Times per Week Seatbelt Use: always Sunscreen Use: No Assistive Devices: Denture - Upper, Denture - Lower and Glasses Allergies Allergies Allergy/AdvReac Type Severity Reaction Status Date / Time lisinopril Allergy Intermediate muscle Verified 10/13/23 23:32 pain, rash losartan AdvReac Unknown CAN'T Verified 10/13/23 23:32 REMEMBER Home Meds Home Medications Medication Instructions Recorded Confirmed cinnamon bark 500 mg capsule 500 mg PO BID 10/25/18 10/13/23 (Cinnamon) omega-3 fatty acids 1,000 mg 1,200 mg PO QAM 10/25/18 10/13/23 capsule desonide 0.05 % topical ointment 1 appln topical BID PRN Skin 02/16/19 10/13/23 Irritation #1 g aspirin 81 mg tablet,delayed 81 mg PO QAM 02/17/19 10/13/23 release ascorbic acid (vitamin C) 1,000 mg 1,000 mg PO QAM 03/24/22 10/13/23 tablet,extended release (Vitamin C ER) rosuvastatin 10 mg tablet 5 mg PO DAILY 01/06/23 10/13/23 amoxicillin 875 mg tablet 875 mg PO BID 10/13/23 10/13/23 clotrimazole-betamethasone 1 1 applic topical HS 10/13/23 10/13/23 %-0.05 % topical cream insulin glargine 100 unit/mL (3 40 unit subcut BID 10/13/23 10/13/23 mL) subcutaneous pen (Lantus Solostar U-100 Insulin) vitamin B complex 1 tab PO DAILY 10/13/23 10/13/23 Previous Rx's Medication Instructions Recorded albuterol sulfate 90 mcg/actuation 2 puffs inhalation Q6H PRN 02/17/19 aerosol inhaler (Ventolin HFA) shortness of breath or wheezing #8 grams blood sugar diagnostic ([employer] #100 ea 10/29/21 Ultra Test strips) blood-glucose meter ([employer] #1 ea 10/29/21 Ultra2 Meter kit) lancets ([employer] UltraSoft #100 ea 10/29/21 Lancets) blood-glucose sensor (Dexcom G7 #1 ea 06/30/22 Sensor device) blood-glucose meter,continuous #1 ea 08/07/22 (Dexcom G7 Sanitation Manager) levothyroxine 200 mcg tablet 200 mcg PO DAILY #30 tabs 10/31/22 metformin 1,000 mg tablet 1,000 mg PO BID #180 tabs 08/05/23 metoprolol tartrate 50 mg tablet 50 mg PO BID #180 tabs 08/05/23 Results & Data (ED) Vital Signs Vital Signs - 24 hr 10/13/23 21:12 10/13/23 21:12 10/13/23 21:12 Temperature 36.6 C Temperature Source Oral Pulse Rate 75 Pulse Rate [Apical] 77 Pulse Rhythm Regular Pulse Rhythm [Apical] Regular Pulse Strength Normal Pulse Strength [Apical] Normal Respiratory Rate 20 20 Respiratory Effort / Characteristics Non-Labored Spontaneous Non-Labored Spontaneous Respiratory Depth Normal Normal Respiratory Pattern Regular Blood Pressure 180/84 H Blood Pressure [Left Arm] Blood Pressure Mean 116 Blood Pressure Mean [Left Arm] Blood Pressure Position Sitting Blood Pressure Position [Left Arm] Pulse Oximetry 97 97 Oxygen Delivery Method Room Air Room Air Room Air Sepsis Recent Fever Within 48 Hours No Sepsis New/Unexplained Change in Mental Status No Sepsis Action Taken by Nursing No Action Required Pulse Oximetry Post Tiitration 97 10/13/23 21:22 10/13/23 22:24 10/13/23 23:00 Temperature Temperature Source Pulse Rate 73 70 Pulse Rate [Apical] 74 Pulse Rhythm Regular Pulse Rhythm [Apical] Regular Pulse Strength Pulse Strength [Apical] Normal Respiratory Rate 18 16 Respiratory Effort / Characteristics Non-Labored Spontaneous Respiratory Depth Normal Respiratory Pattern Regular Blood Pressure Blood Pressure [Left Arm] 166/89 H Blood Pressure Mean Blood Pressure Mean [Left Arm] 114 Blood Pressure Position Blood Pressure Position [Left Arm] Lying Pulse Oximetry 96 97 Oxygen Delivery Method Room Air Room Air Sepsis Recent Fever Within 48 Hours Sepsis New/Unexplained Change in Mental Status Sepsis Action Taken by Nursing Pulse Oximetry Post Tiitration 10/14/23 00:21 Temperature Temperature Source Pulse Rate Pulse Rate [Apical] 89 Pulse Rhythm Pulse Rhythm [Apical] Pulse Strength Pulse Strength [Apical] Respiratory Rate 18 Respiratory Effort / Characteristics Respiratory Depth Respiratory Pattern Blood Pressure Blood Pressure [Left Arm] 159/77 H Blood Pressure Mean Blood Pressure Mean [Left Arm] 104 Blood Pressure Position Blood Pressure Position [Left Arm] Lying Pulse Oximetry 97 Oxygen Delivery Method Room Air Sepsis Recent Fever Within 48 Hours Sepsis New/Unexplained Change in Mental Status Sepsis Action Taken by Nursing Pulse Oximetry Post Tiitration Laboratory Data 10/13/23 22:20 10/13/23 22:20 Lab Results 10/13/23 10/14/23 10/14/23 Range/Units 22:20 00:15 01:03 WBC 9.01 (4.8-10.8) K/ul RBC 4.07 L (4.70-6.10) M/uL Hgb 12.1 L (14.0-18.0) g/dl Hct 35.1 L (42.0-52.0) % MCV 86.2 (80.0-100.0) fL MCH 29.7 (25.0-34.0) pg MCHC 34.5 (32.0-36.0) g/dL RDW Std Deviation 42.5 (36.4-46.3) fL RDW Coeff of Stacia 13.5 (11.5-14.5) % Plt Count 215 (130-400) K/uL MPV 10.3 (9.4-12.4) fL Immature Gran % (Auto) 3.4 % Neut % (Auto) 71.1 % Lymph % (Auto) 15.4 % [place] % (Auto) 6.2 % Eos % (Auto) 3.3 % Baso % (Auto) 0.6 % Neut # (Auto) 6.40 (1.40-6.50) K/uL Lymph # (Auto) 1.39 (1.20-3.40) K/uL [place] # (Auto) 0.56 (0.11-0.59) K/uL Eos # (Auto) 0.30 (0.00-0.50) K/uL Baso # (Auto) 0.05 (0.00-0.20) K/uL Immature Gran # (Auto) 0.31 H (0.01-0.20) K/uL Sodium 128 L (136-145) mmol/L Potassium 4.2 (3.5-5.1) mmol/L Chloride 91 L (98-107) mmol/L Carbon Dioxide 29 (21-32) mmol/L Anion Gap 8 (3-11) BUN 24 H (6-23) mg/dl Creatinine 1.34 (0.6-1.4) mg/dl Est Cr Clr Drug Dosing 39.6 ml/min Est GFR ( Amer) 55.2 ml/min Est GFR (Non-Af Amer) 47.6 ml/min BUN/Creatinine Ratio 17.9 (10-20) Glucose 168 H (70-99(Fasting)) mg/dl POC Glucose 144 H (70-99) mg/dl Calcium 9.8 (8.6-10.3) mg/dl Magnesium 1.7 (1.7-2.4) mg/dl Total Bilirubin 0.8 (0.2-1.0) mg/dl AST 18 (13-39) U/L ALT 17 (7-52) U/L Alkaline Phosphatase 62 (34-104) U/L Troponin I High Sens 21.9 H 24.1 H (0-20) pg/ml Total Protein 7.3 (6.0-8.3) gm/dl Albumin 4.4 (3.4-5.0) gm/dl Globulin 2.9 (2.5-4.0) gm/dl Albumin/Globulin Ratio 1.5 (0.9-2) TSH 1.173 (0.300-4.500) uIu/ml Adenovirus (PCR) Not Detected (NotDetected) B. pertussis DNA (PCR) Not Detected (NotDetected) B.parapertussis DNA PCR Not Detected (NotDetected) C. pneumoniae DNA (PCR) Not Detected (NotDetected) Coronavirus OC43 (PCR) Not Detected (NotDetected) Coronavirus HKU1 (PCR) Not Detected (NotDetected) Coronavirus 229E (PCR) Not Detected (NotDetected) SARS-CoV-2 (PCR) Not Detected (NotDetected) Coronavirus NL63 (PCR) Not Detected (NotDetected) Human Metapneumovir PCR Not Detected (NotDetected) Influenza Type A (PCR) Not Detected (NotDetected) Influenza Type B (PCR) Not Detected (NotDetected) M. pneumoniae (PCR) Not Detected (NotDetected) Parainfluenza 1 (PCR) Not Detected (NotDetected) Parainfluenza 2 (PCR) Not Detected (NotDetected) Parainfluenza 3 (PCR) Not Detected (NotDetected) Parainfluenza 4 (PCR) Not Detected (NotDetected) RSV (PCR) Not Detected (NotDetected) Entero/Rhino (PCR) Not Detected (NotDetected) Administered Medications Discontinued Medications Sodium Chloride (Nss) 1,000 mls @ 999 mls/hr IV .Q1H1M MADDIE Stop: 10/13/23 23:00 Last Infusion: 10/13/23 23:21 Dose: Infused Documented By: Admin: 10/13/23 22:20 Dose: 999 mls/hr Documented By: SNS Discharge Plan Visit Data Chief Complaint: Weakness Stated Complaint: WEAKNESS ED Provider: Kishan Vasques ED Midlevel Provider: Billie Medley Discharge Problem: Weakness, Hyponatremia Patient Disposition: Admitted As Inpatient Forms Stand Alone Forms: [facility] Prescriptions Prescriptions: No Action (DME) blood-glucose meter [OneTouch Ultra2 Meter] Kit See Rx Instructions .Route Qty: 1 0RF Rx Instructions: TEST TWICE DAILY OR DIRECTED (DME) OneTouch Ultra Test Strip See Rx Instructions .Route Qty: 100 1RF Rx Instructions: TEST TWICE DAILY OR DIRECTED (DME) lancets [OneTouch UltraSoft Lancets] Misc See Rx Instructions .Route Qty: 100 1RF Rx Instructions: TEST TWICE DAILY OR DIRECTED (DME) Dexcom G7 Sanitation Manager Misc See Rx Instructions .Route Qty: 1 0RF Rx Instructions: As directed ICD 10: E11.9, Z79.4 metformin 1,000 mg tablet 1,000 mg PO BID Qty: 180 1RF metoprolol tartrate 50 mg tablet 50 mg PO BID Qty: 180 1RF cinnamon bark [Cinnamon] 500 mg capsule 500 mg PO BID omega-3 fatty acids 1,000 mg capsule 1,200 mg PO QAM desonide 0.05 % ointment 1 appln topical BID PRN (Reason: Skin Irritation) Qty: 1 (DME) Dexcom G7 Sensor Device See Rx Instructions .Route Qty: 1 0RF Rx Instructions: As directed ICD 10: E11.9, Z79.4 rosuvastatin 10 mg tablet 5 mg PO DAILY levothyroxine 200 mcg tablet 200 mcg PO DAILY Qty: 30 2RF aspirin 81 mg Tablet,Delayed Release (Dr/Ec) 81 mg PO QAM albuterol sulfate [Ventolin HFA] 90 mcg/actuation HFA aerosol inhaler 2 puffs INH Q6H PRN (Reason: shortness of breath or wheezing) Qty: 8 0RF Vitamin C 1,000 mg Tablet Extended Release 1,000 mg PO QAM amoxicillin 875 mg tablet 875 mg PO BID Rx Instructions: STARTED 10/09/23 FOR 10 DAYS vitamin B complex Tablet 1 tab PO DAILY clotrimazole-betamethasone 1-0.05 % cream 1 applic topical HS Rx Instructions: Apply small/pea-sized amount topically before bed insulin glargine [Lantus Solostar U-100 Insulin] 100 unit/mL (3 mL) insulin pen 40 unit subcut BID Referrals Referrals: Alexa Peterson MD [Primary Care Provider] -
[2023-10-13] MEDS: SODIUM CHLORIDE 0.9% 1,000 ML IV SCH (22:20)
[2023-10-13 22:43] LABS: Basophils # (auto) 0.05 K/uL (0.00-0.20); Basophils % (auto) 0.6 %; Eosinophils % (auto) 3.3 %; Hematocrit (blood only) 35.1 % (42.0-52.0); Hemoglobin 12.1 g/dl (14.0-18.0); Immature Granulocytes # (auto) 0.31 K/uL (0.01-0.20); Immature Granulocytes % (auto) 3.4 %; Lymphocytes # (auto) 1.39 K/uL (1.20-3.40); Lymphocytes % (auto) 15.4 %; Mean Corpuscular Hemoglobin 29.7 pg (25.0-34.0); Mean Corpuscular Hgb Conc 34.5 g/dL (32.0-36.0); Mean Corpuscular Volume 86.2 fL (80.0-100.0); Mean Platelet Volume 10.3 fL (9.4-12.4); Monocytes # (auto) 0.56 K/uL (0.11-0.59); Monocytes % (auto) 6.2 %; Neutrophils % (auto) 71.1 %; Platelet Count 215 K/uL (130-400); RDW Coefficient of Variation 13.5 % (11.5-14.5); RDW Standard Deviation 42.5 fL (36.4-46.3); Red Blood Count 4.07 M/uL (4.70-6.10); White Blood Count 9.01 K/ul (4.8-10.8)
[2023-10-13 23:01] LABS: Albumin Globulin Ratio 1.5 (0.9-2); Albumin Level 4.4 gm/dl (3.4-5.0); BUN Creatinine Ratio 17.9 (10-20); Bilirubin,Total 0.8 mg/dl (0.2-1.0); Calcium 9.8 mg/dl (8.6-10.3); Creatinine Clr Calc Pharmacy 39.6 ml/min; Est GFR (African American) 55.2 ml/min; Est GFR (Non-African American) 47.6 ml/min; Globulin 2.9 gm/dl (2.5-4.0); Magnesium 1.7 mg/dl (1.7-2.4); Potassium 4.2 mmol/L (3.5-5.1); Total Protein 7.3 gm/dl (6.0-8.3)
[2023-10-13 23:08] LABS: Troponin I High Sensitivity 21.9 pg/ml (0-20)
[2023-10-13 23:18] LABS: Thyroid Stimulating Hormone 1.173 uIu/ml (0.300-4.500)
[2023-10-13 23:30] LABS: Adenovirus PCR Not Detected (NotDetected); Bordetella parapertussis PCR Not Detected (NotDetected); Bordetella pertussis PCR Not Detected (NotDetected); Chlamydia pneumoniae PCR Not Detected (NotDetected); Coronavirus 229E PCR Not Detected (NotDetected); Coronavirus CoV-2 (COVID19)PCR Not Detected (NotDetected); Coronavirus HKU1 PCR Not Detected (NotDetected); Coronavirus NL63 PCR Not Detected (NotDetected); Coronavirus OC43PCR Not Detected (NotDetected); Human Metapneumovirus PCR Not Detected (NotDetected); Influenza A PCR Not Detected (NotDetected); Influenza B PCR Not Detected (NotDetected); Mycoplasma pneumoniae PCR Not Detected (NotDetected); Parainfluenza Virus 1 PCR Not Detected (NotDetected); Parainfluenza Virus 2 PCR Not Detected (NotDetected); Parainfluenza Virus 3 PCR Not Detected (NotDetected); Parainfluenza Virus 4 PCR Not Detected (NotDetected); Respiratory Syncytial VirusPCR Not Detected (NotDetected); Rhinovirus/Enterovirus PCR Not Detected (NotDetected)
--- NOTE | 2023-10-13 23:39 | Emergency Department Note ---
ED Visit Note I was consulted by the Advanced Practice Provider Billie Medley PA-C. I performed a substantive portion of the visit including all aspects of medical decision making. .
--- NOTE | 2023-10-14 01:09 | History & Physical Report ---
Date of Service October 14, 2023 Assessment & Plan (1) Weakness: Plan: 88 M with PMH DM2, CKD 3 HTN, HLD, BPH, het. FVL, hypothyroidism, and moderate aortic stenosis, presenting to ER with progressive, generalized, nonfocal LE weakness in the setting of recent R otitis media admitted for evaluation, management of generalized weakness, hyponatremia. Weakness -Acute problem. Patient fully ambulatory at home at baseline without mobility aid. Denies recent fall/trauma, confusion, dyspnea on exertion, focal hemiparesis, or dysuria. -Patient afebrile, VSS. Na 128 on admission labs. K+, Cr, respiratory BioFire normal. No leukocytosis. Trace proteinemia on UA, (UA otherwise normal). No acute changes on CXR. -No apparent focal deficits/hemiparesis on exam. -Hx of aortic valvular disease seen on last stress echo (November 2022) * Admit to [facility] OBSV * Maintenance IVF: LR@100 mL/h * PT/OT evaluation ordered appreciate eval * TTE pending * Trend a.m. labs, clinical improvement Hyponatremia -Na 128 on admission (Na 135-140 at baseline 137 two weeks ago). -Etiology unclear patient appears euvolemic, furthermore he denies reduced p.o. intake, is otherwise asymptomatic. Likely 2/2 recent URI, abx. * Trend Na on daily BMP consider fluid restriction if Na fails to improve * Serum, urine Osms pending * Continue to monitor Elevated Troponin -21.9 on admission. 2-our repeat 24.1. CXR appears unchanged from last. Likely demand ischemia. -No chest pain, dyspnea on exertion, SOB at rest, focal deficits/hemiparesis, epigastric pain, or hypoxia on pulse ox. * Repeat troponin ordered with a.m. labs * Continue to monitor Acute Otitis Media, Right -Improving. Now on day 5/10 of amoxicillin 875 mg twice daily (last dose 10/17). * Continue p.o. amoxicillin 875 mg * IV azithromycin 500 mg x 10 days added (last dose 10/22). Insulin-Dependent Type 2 Diabetes -Managed on metformin 1000 mg twice daily, Lantus 40 units SQ twice daily. Wears Dexcom. Most recent HgbA1c = 7.5, two weeks ago (goal HgbA1c <7.5%, per most recent PCP visit note). -Missed evening Lantus dose now s/p Lantus x30 units given in ER on admission. * Metformin held, home Lantus dose modified (30 units twice daily) * SSI, ACHS checks per protocol (BSG = 100-140 CF = 20, CR = 10) * Continue home Crestor 5 mg daily Hyperlipidemia -Managed on rosuvastatin 5 mg daily. * Continue Crestor as above Hypothyroidism -Takes levothyroxine 200 mcg daily. * Continue levothyroxine Aortic Valvular Stenosis (Moderate) -Discovered on stress echo 11/28/2022. Report read by Dr. Fonseca. Started on metoprolol tartrate 50 mg twice daily. -Currently asymptomatic: Denies dyspnea on exertion, SOB, or chest pain/pressure. Aforementioned mildly elevated troponin. * Continue Lopressor 50 mg twice daily, daily aspirin 81 mg, rosuvastatin as above * TTE ordered U/S report pending BPH w/LUTS + Urinary Obstruction -Well-controlled, does not require daily meds. Follows with [facility] urology yearly. * Continue to monitor Factor V Leiden Mutation (Heterozygous) -Discovered incidentally after sister diagnosed with mutation. No incidence of DVT or PE. Not on anticoagulation. * Monitor Code: Full code Dispo: Med-Surg FEN/GI: LR @maintenance rate. Heart healthy DVT Prophylaxis: Lovenox 40 mg q24h PT/OT: Yes Consults: None Case Management: No (2) Hyponatremia: (3) Diabetes mellitus type 2, insulin dependent: (4) Elevated troponin: (5) Hypercholesterolemia: (6) Hypothyroidism: (7) Aortic stenosis: (8) BPH w urinary obs/LUTS: (9) Factor V Leiden mutation: (10) Acute right otitis media: History of Present Illness Primary Care Provider: Alexa Peterson MD Rob is an 88-year-old man with a past medical history of type 2 diabetes with CKD 3, hypertension, hypothyroidism, hyperlipidemia, asthma, BPH, and moderate aortic valve stenosis who presented to the ER with a complaint of weakness and dizziness x 10 days continued worsening x 5 days despite antibiotic therapy. Patient presented to [facility] 5 days ago (10/08) with a complaint of right ear fullness he was diagnosed with acute otitis media and sent home on amoxicillin 875 mg twice daily x 10 days and prednisone 20 mg daily x 3 days. He took the antibiotics as prescribed, but continued to grow weaker and more dizzy over the following 5 days. When he woke up this morning, he reports feeling "noticeably weaker than the day before." When asked to specify, he describes "struggling to move my legs." He denies fever, chills, shortness of breath, headache, confusi on, dysuria, increased urinary frequency, diminished appetite, constipation, diarrhea, abdominal pain, or recent fall/trauma. In the ER, vitals were stable, within normal limits. Labs were notable for Na- 128, BSG-168, Hgb-12.1, and ld-tvhmdorp-78.9. WBC (9.01) was normal, as were his electrolytes, and the respiratory biofire panel. He received a 1 L NS bolus the hospitalist service was then consulted for admission. On admission, he corroborates HPI. ROS + nausea, chest congestion. Otherwise, ROS +/- as above. Allergies Allergy/AdvReac Type Severity Reaction Status Date / Time lisinopril Allergy Intermediate muscle Verified 10/13/23 23:32 pain, rash losartan AdvReac Unknown CAN'T Verified 10/13/23 23:32 REMEMBER Home Medications Medication Instructions Recorded Confirmed Type cinnamon bark 500 mg capsule 500 mg PO BID 10/25/18 10/13/23 History (Cinnamon) omega-3 fatty acids 1,000 mg 1,200 mg PO QAM 10/25/18 10/13/23 History capsule desonide 0.05 % topical ointment 1 appln topical BID PRN Skin 02/16/19 10/13/23 History Irritation #1 g albuterol sulfate 90 mcg/actuation 2 puffs inhalation Q6H PRN 02/17/19 10/13/23 Rx aerosol inhaler (Ventolin HFA) shortness of breath or wheezing #8 grams aspirin 81 mg tablet,delayed 81 mg PO QAM 02/17/19 10/13/23 History release blood sugar diagnostic (HuStreamuch #100 ea 10/29/21 09/29/23 Rx Ultra Test strips) blood-glucose meter (AdaptiveBlueTouch #1 ea 10/29/21 09/29/23 Rx Ultra2 Meter kit) lancets (HuStreamuch UltraSoft #100 ea 10/29/21 09/29/23 Rx Lancets) ascorbic acid (vitamin C) 1,000 mg 1,000 mg PO QAM 03/24/22 10/13/23 History tablet,extended release (Vitamin C ER) blood-glucose sensor (Dexcom G7 #1 ea 06/30/22 09/29/23 Rx Sensor device) blood-glucose meter,continuous #1 ea 08/07/22 09/29/23 Rx (Dexcom G7 [place]) levothyroxine 200 mcg tablet 200 mcg PO DAILY #30 tabs 10/31/22 10/13/23 Rx rosuvastatin 10 mg tablet 5 mg PO DAILY 01/06/23 10/13/23 History metformin 1,000 mg tablet 1,000 mg PO BID #180 tabs 08/05/23 10/13/23 Rx metoprolol tartrate 50 mg tablet 50 mg PO BID #180 tabs 08/05/23 10/13/23 Rx amoxicillin 875 mg tablet 875 mg PO BID 10/13/23 10/13/23 History clotrimazole-betamethasone 1 1 applic topical HS 10/13/23 10/13/23 History %-0.05 % topical cream insulin glargine 100 unit/mL (3 40 unit subcut BID 10/13/23 10/13/23 History mL) subcutaneous pen (Lantus Solostar U-100 Insulin) vitamin B complex 1 tab PO DAILY 10/13/23 10/13/23 History Past Med/Surg History Problem List (Updated 10/14/23 @ 04:07 by Jasmyne Siu MD) Elevated troponin Acute right otitis media Hyponatremia (Acute) Weakness (Acute) Aortic stenosis Chest pain History of melanoma in situ BPH w urinary obs/LUTS Anemia Incomplete emptying of bladder Uncontrolled diabetes with stage 3 chronic kidney disease GFR 30-59 (Chronic) Sensorineural hearing loss (SNHL) of both ears (Chronic) Rhinitis, nonallergic (Chronic) Prostatic hyperplasia (Chronic) Hypothyroidism (Chronic) Hypercholesterolemia (Chronic) HTN, goal below 140/90 (Chronic) Factor V Leiden mutation (Chronic) Heterozygous; no hx of DVT or PE with patient (sister was dx'ed with Factor V mutation which prompted patient to get tested), no AC needed per 2017 heme note Diabetic peripheral neuropathy (Chronic) Diabetes mellitus type 2, insulin dependent (Chronic) Uses dexcom CKD (chronic kidney disease) stage 3, GFR 30-59 ml/min (Chronic) Medical History BPH (benign prostatic hyperplasia) Anemia Stable Asthma rare res inh use > can't remember last use Surgical History Hx of melanoma excision History of colonoscopy History of tooth extraction History of cataract surgery S/P prostatectomy S/P wisdom tooth extraction Family History Unknown Diabetes Heart disease History of nephrolithiasis Mother Diabetes Breast cancer Colorectal cancer Father Myocardial infarction Sister Factor V Leiden mutation Denies family history of Ovarian cancer Prostate cancer Social History Smoking Status: Former smoker Tobacco Type: Cigarettes Age Started Using Tobacco: 20; Age Quit Using Tobacco: 40; packs per day: 1; Second Hand Exposure: No; Do You Dip or Chew Tobacco: No; Tobacco Cessation Education Requested by Patient: No Hx Alcohol Use: Yes Alcohol type: beer, wine and hard liquor Alcohol Intake Frequency: 2-4 x/Month Hx Substance Use: No Preferred Language: Occitan Communication Ability: Effective Visual Impairment: No Limitations Hearing Ability: Use of Hearing Aid Health Program Director Required: No Beliefs That Will Affect Care: None marital status: Current Living Situation: Spouse Current Living Situation Comment: Lives at home with current occupational status: retired 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 Normal conjunctiva, anicteric sclera. Oropharynx normal. Respiratory: Normal respiratory effort, CTABL. Cardiovascular: RRR without murmurs, gallops, or rubs. No pedal edema. GI: Soft abdomen. Nontender x4 quadrants Neuro: Alert and oriented x3. Results & Data Results & Data Vital Signs (Past 12 Hours) Vital Signs Temp Pulse Pulse Resp BP BP Pulse Ox 10/14/23 00:21 89 18 159/77 H 97 10/13/23 23:00 74 16 166/89 H 97 10/13/23 22:24 70 18 96 10/13/23 21:22 73 10/13/23 21:12 77 20 97 10/13/23 21:12 10/13/23 21:12 36.6 C 75 20 180/84 H 97 O2 Del Method 10/14/23 00:21 Room Air 10/13/23 23:00 Room Air 10/13/23 22:24 Room Air 10/13/23 21:22 10/13/23 21:12 Room Air 10/13/23 21:12 Room Air 10/13/23 21:12 Room Air Code Status & VTE Plan VTE Prophylaxis Plan VTE Prophylaxis will be ordered: Yes Supervising Physician Co-Signing Physician Notes Attending addendum: I have physically seen this patient, have supervised the medical residents activities, and agree with the H&P unless as otherwise noted. Assessment and Plan: Generalized weakness- Recently treated for otitis media, may have associated viral process going on Differential also including hyponatremia with decreased oral intake Elevated troponin is more likely supply/demand mismatch Admit to observation LR at 100 MLS per hour Placed on azithromycin 5 mg IV daily for otitis media and associated dizziness Consult PT/OT Hyponatremia- Sodium 128 on admission Serum and urine osmolality pending IV fluids as noted Likely secondary to decreased oral intake over the past few days Diabetes mellitus- Hold metformin Adjust Lantus Placed on Accu-Cheks with NovoLog SSI Remaining orders and notations as noted Resident Activity Tracking Resident Involvement: Resident Care Provided Care Provided: Adult Hospital Medicine
[2023-10-14] MEDS ORDERED: GLUCOSE 10 TAB/TUBE PO PRN (01:54)
[2023-10-14] MEDS ORDERED: GLUCOSE 40% GEL 15 GM TUBE PO PRN (01:54)
[2023-10-14] MEDS ORDERED: GLUCAGON FOR INJ 1 MG VIAL SQ PRN (01:54)
[2023-10-14] MEDS ORDERED: ALBUTEROL HFA 8 GM INHALER INH PRN (01:54)
[2023-10-14] MEDS ORDERED: DEXTROSE 50% 50 ML SYRINGE IV PRN (01:54)
[2023-10-14 02:58] LABS: Appearance Urine Clear (Clear); Bacteria Urine Automated None Seen (None Seen); Bilirubin Urine Negative (Negative); Blood Urine Negative (Negative); Cast Urine Automated 0-2 /lpf (0-2); Color Urine Yellow; Epithelial Cell Urine Auto 0-2 /hpf (0-2); Glucose Urine UA Negative (Negative); Ketones Urine Negative (Negative); Leukocyte Esterase Urine Negative (Negative); Nitrite Urine Negative (Negative); Protein Urine Trace (Negative); RBC Urine Automated 0-2 /hpf (0-2); Specific Gravity Urine 1.011 (1.000-1.030); Urobilinogen Urine Negative (Negative); WBC Urine Automated 0-5 /hpf (0-5)
[2023-10-14] MEDS: LACTATED RINGER'S 1,000 ML IV SCH ×3 (04:16→11:11)
[2023-10-14] MEDS: AZITHROMYCIN 500 MG in DEXTROSE 5% 250 ML IV SCH (04:16)
[2023-10-14] MEDS: ENOXAPARIN INJ 40 MG/0.4 ML SYR SQ SCH (04:18)
[2023-10-14] MEDS: AMOXICILLIN 875 MG TAB PO STA (04:21)
[2023-10-14] MEDS: LANTUS PER UNIT CHARGE SQ ONE (04:21)
[2023-10-14] MEDS: LEVOTHYROXINE SODIUM 200 MCG TABLET PO SCH (06:17)
[2023-10-14 06:38] LABS: BUN Creatinine Ratio 18.3 (10-20); Calcium 8.8 mg/dl (8.6-10.3); Creatinine Clr Calc Pharmacy 42.1 ml/min; Est GFR (African American) 59.5 ml/min; Est GFR (Non-African American) 51.3 ml/min; Potassium 3.9 mmol/L (3.5-5.1)
[2023-10-14 06:44] LABS: Troponin I High Sensitivity 26.7 pg/ml (0-20)
--- NOTE | 2023-10-14 08:11 | XRay Report ---
XR chest 1V portable CLINICAL HISTORY: weakness TECHNIQUE: Single frontal radiograph of the chest was obtained. Comparison: Comparison is made to chest radiograph 08/24/2023 FINDINGS: No lines and tubes are seen. Calcified aortic knob is seen. The lungs are clear. No evidence of pleur al effusion or pneumothorax. Skinfolds are noted on the right. IMPRESSION: No acute chest disease. ACT 112: Negative or not required by law. Electronically signed by: Jimmie Andrade M.D. 10/14/2023 8:09 AM
[2023-10-14] MEDS: METOPROLOL TARTRATE 50 MG TAB PO SCH (09:28)
[2023-10-14] MEDS: ASCORBIC ACID 500 MG TAB PO SCH (09:28)
[2023-10-14] MEDS: ASPIRIN 81 MG ECTAB PO SCH (09:28)
[2023-10-14] MEDS: AMOXICILLIN 875 MG TAB PO SCH (09:29)
[2023-10-14] MEDS: VITAMIN B COMPLEX TAB PO SCH (09:29)
[2023-10-14] MEDS: ROSUVASTATIN CALCIUM 5 MG TAB PO SCH (09:29)
[2023-10-14] MEDS: LANTUS PER UNIT CHARGE SQ SCH (09:34)
[2023-10-14] MEDS: INSULIN ASPART PER UNIT CHARGE SC SCH (09:34)
--- NOTE | 2023-10-14 09:57 | Hospitalist Progress Note ---
Date of Service October 14, 2023 Assessment & Plan (1) Weakness: Plan: 88 M with PMH DM2, CKD 3 HTN, HLD, BPH, hypothyroidism, and moderate aortic stenosis, presenting to ER with progressive, generalized, nonfocal LE weakness in the setting of recent R otitis media -Patient afebrile. Respiratory biofire normal. CXR- no acute chest disease. Tick borne screen negative. Babesia DNA pending -WBC WNL, CRP neg - Echo: EF 60-65% with severe LVH, aortic stenosis still moderate but the aortic transvalvular gradient/velocity has increased -orthostatic VS positive - 1L IVF - recheck AM - AM cortisol WNL - PT/OT - recommend rehab AM BMP and CBC (2) Hyponatremia: Plan: -Na 128 on admission (Na 135-140 at baseline 137 two weeks ago). -Etiology unclear denies reduced p.o. intake, is otherwise asymptomatic. * urine osm 427, urine Na 76, serum os 281 - received 1L IVF due to orthostasis - FR 1800mL (3) Acute right otitis media: Plan: -Improving. continue course of amoxicillin 875 mg twice daily (last dose 10/17). - Continue p.o. amoxicillin 875 mg - IV azithromycin 500 mg x 10 days added (last dose 10/22). (4) Elevated troponin: Plan: -21.9 on admission. 2-our repeat 24.1. CXR appears unchanged from last. L ikely demand ischemia. -No chest pain, dyspnea on exertion, SOB at rest, focal deficits/hemiparesis, epigastric pain, or hypoxia on pulse ox. - troponin has not peaked, but very gradual increase. doubt ACS as remains asymptomatic. Recheck troponin ordered (5) Aortic stenosis: Plan: -Discovered on stress echo 11/28/2022. Report read by Dr. Fonseca. Started on metoprolol tartrate 50 mg twice daily. - Echo: EF 60-65% with severe LVH, aortic stenosis still moderate but the aortic transvalvular gradient/velocity has increased Suspect component of dehydration contributing to patients presentation Plan Chronic stable medical problems * DM - wears Dexcom. Home meds: lantus 40u BID & metformin (held). Continue Lantus 30u BID and SSI * HLD - continue statin * Hypothyroid - continue Synthroid * Factor V Leiden - no DVT or PE DVT proh: Lovenox SQ Dispo: continued inpatient stay Admission and Anticipated Discharge Date Admission Date: October 14, 2023 Supervising Physician Co-Signing Physician Notes PA Supervision Note: I did not personally see or examine the patient today, but I verified all martin points of CHANTE Willard's assessment and plan with the following exceptions/additions: Can dc azithro-no need for this with AOM Subjective Patient sitting up in chair. Dizziness has improved, but legs just give out when he is standing. no diet changes, weight loss, new medications does report spending time outside and having multiple mosquito bites no cough, fever or chills. BM normal per pt occasionally uses a cane Review of Systems Review of Systems: All systems reviewed & are unremarkable except as noted in Subjective Physical Exam Physical Exam: General: NAD, VS as above, sitting up in chair, feels well HEENT: MMM Resp: normal respiratory effort, lungs clear to auscultation CV: RRR, no murmur, Abd: normal bowel sounds, non tender, no hepatosplenomegaly Extremities: Moves all extremities, no edema Neuro: A&O x3, Skin: intact, no lesions noted Results & Data Results & Data Vital Signs (Past 12 Hours) Vital Signs Temp Pulse Pulse Resp BP Pulse Ox O2 Del Method 10/14/23 07:19 36.9 C 88 16 101/67 95 Room Air 10/14/23 04:10 36.5 C 90 18 160/69 H 96 Room Air 10/14/23 00:21 89 18 159/77 H 97 Room Air 10/13/23 23:00 74 16 166/89 H 97 Room Air 10/13/23 22:24 70 18 96 Room Air PG Care Time/CCT Total # of Minutes Spent Total Time Spent with Patient: Total time spent is greater than 50% in coordination of care (as documented) at patient's floor/unit and/or counseling patient: Coding Level of Care Code None Diagnoses Weakness R53.1 Hyponatremia E87.1 Acute right otitis media H66.91 Elevated troponin R79.89 Aortic stenosis I35.0
--- NOTE | 2023-10-14 15:50 | XCELERA ---
[id number]
--- NOTE | 2023-10-14 22:12 | Billing Data ---
Date of Service October 14, 2023 Coding Level of Care Code 44027 INT INP/OBS CARE
--- NOTE | 2023-10-15 06:56 | Electrocardiogram Report ---
Test Reason : Blood Pressure : / mmHG Vent. Rate : 072 BPM Atrial Rate : 072 BPM P-R Int : 194 ms QRS Dur : 094 ms QT Int : 376 ms P-R-T Axes : 054 -01 047 degrees QTc Int : 411 ms Normal sinus rhythm Normal ECG When compared with ECG of 30-JUN-2023 04:56, Premature atrial complexes are no longer Present Vent. rate has decreased BY [address] no longer depressed in Anterior leads Confirmed by Rad Garcia ([id number]) on 10/15/2023 6:55:45 AM Referred By: REFERRED SELF Confirmed By:Rad Garcia
[2023-10-15 07:07] LABS: Hematocrit (blood only) 37.7 % (42.0-52.0); Hemoglobin 12.7 g/dl (14.0-18.0); Mean Corpuscular Hgb Conc 33.7 g/dL (32.0-36.0); Mean Corpuscular Volume 86.1 fL (80.0-100.0); Mean Platelet Volume 10.2 fL (9.4-12.4); Platelet Count 238 K/uL (130-400); RDW Coefficient of Variation 13.4 % (11.5-14.5); Red Blood Count 4.38 M/uL (4.70-6.10); White Blood Count 8.62 K/ul (4.8-10.8)
[2023-10-15 07:33] LABS: BUN Creatinine Ratio 18.3 (10-20); Calcium 8.9 mg/dl (8.6-10.3); Creatinine Clr Calc Pharmacy 48.6 ml/min; Est GFR (African American) 70.9 ml/min; Est GFR (Non-African American) 61.1 ml/min; Potassium 3.7 mmol/L (3.5-5.1)
[2023-10-15] MEDS: LANTUS PER UNIT CHARGE SQ SCH (08:55)
[2023-10-15] MEDS: LACTATED RINGER'S 1,000 ML IV SCH (11:55)
--- NOTE | 2023-10-15 14:18 | Hospitalist Progress Note ---
Date of Service October 15, 2023 Assessment & Plan (1) Weakness: Plan: 88 M with PMH DM2, CKD 3 HTN, HLD, BPH, hypothyroidism, and moderate aortic stenosis, presenting to ER with progressive, generalized, nonfocal LE weakness in the setting of recent R otitis media -Patient afebrile. Respiratory biofire normal. CXR- no acute chest disease. Tick borne screen negative. Babesia DNA pending -WBC WNL, CRP neg - Echo: EF 60-65% with severe LVH, aortic stenosis still moderate but the aortic transvalvular gradient/velocity has increased -orthostatic VS positive again 10/14 - additional 1L IVF - recheck AM - AM cortisol WNL - PT/OT - recommend rehab - referral to [facility] made AM BMP and CBC (2) Hyponatremia: Plan: -Na 128 on admission (Na 135-140 at baseline 137 two weeks ago). -Etiology unclear denies reduced p.o. intake, is otherwise asymptomatic. * urine osm 427, urine Na 76 (after fluids), serum os 281 - received 1L IVF due to orthostasis (3) Acute right otitis media: Plan: -Improving. continue course of amoxicillin 875 mg twice daily (last dose 10/17). - Continue p.o. amoxicillin 875 mg (4) Elevated troponin: Plan: -21.9 on admission. Trop peaked at 26. CXR appears unchanged from last. ECG w ithout ischemic changes, ECHO no WMAs, with preserved EF< severe LVH, mod Likely demand ischemia. -No chest pain, dyspnea on exertion, SOB at rest, focal deficits/hemiparesis, epigastric pain, or hypoxia on pulse ox. (5) Aortic stenosis: Plan: -Discovered on stress echo 11/28/2022. Report read by Dr. Fonseca. Started on metoprolol tartrate 50 mg twice daily. - Echo: EF 60-65% with severe LVH, aortic stenosis still moderate but the aortic transvalvular gradient/velocity has increased Suspect component of dehydration contributing to patients presentation Discussed with Dr. Carranza/Cardiology - no inpatient needs at this time, recommend outpatient cardiology follow up (6) Diabetes mellitus type 2, insulin dependent: Plan: Home reigment: lantus 40unit BID and Metfomin 1000mg BID (held) Was receiving 30unit BID - hypoglycemia episode AM 10/14, pt symptomatic - decreased lantus to 20 units BID *patient reports hypoglycemic episodes at home, likely needs decreased insulin at discharge Plan Chronic stable medical problems * HLD - continue statin * Hypothyroid - continue Synthroid * Factor V Leiden - no DVT or PE DVT proh: Lovenox SQ Dispo: continued inpatient stay SonIgnacio, updated by phone 10/14 Admission and Anticipated Discharge Date Admission Date: October 15, 2023 Supervising Physician Co-Signing Physician Notes PA Supervision Note: I did not personally see or examine the patient today, but I verified all martin points of CHANTE Willard's assessment and plan with the following exceptions/additions: None Subjective Patient seen with TYPE INSPECTOR to do orthostatic vital signs, denied lightheadedness or dizziness throughout but was very unsteady on his feet. Denies fevers of chills. does not feel like the room is spinning. No headache or vision changes. Able to answer all of my questions appropriately. Did not hit his head when he fell at home. Review of Systems Review of Systems: All systems reviewed & are unremarkable except as noted in Subjective Physical Exam Physical Exam: General: NAD, VS as above, seen getting back to bed, unsteady gate when standing HEENT: B/l TM without erythema, + fluid behind TM. Resp: normal respiratory effort, lungs clear to auscultation CV: RRR, no murmur, Abd: normal bowel sounds, non tender, no hepatosplenomegaly Extremities: Moves all extremities, no edema Neuro: A&O x3, in depth neuroexam completed without deficits. No nystagmus. sensation in tact. no facial droop. Able to complete rapid sequence movements. Skin: intact, no lesions noted Results & Data Results & Data Vital Signs (Past 12 Hours) Vital Signs Temp Pulse Resp BP Pulse Ox O2 Del Method 10/15/23 07:13 36.4 C L 80 18 126/79 98 Room Air Laboratory Results CBC, chemsitry and trop revewed POC glucose reviewed PG Care Time/CCT Total # of Minutes Spent Total Time Spent with Patient: Total time spent is greater than 50% in coordination of care (as documented) at patient's floor/unit and/or counseling patient: Coding Level of Care Code 69428 SUB INP/OBS CARE 3/50MIN Diagnoses Weakness R53.1 Hyponatremia E87.1 Acute right otitis media H66.91 Elevated troponin R79.89 Aortic stenosis I35.0 Diabetes mellitus type 2, insulin dependent E11.9; Z79.4
[2023-10-15] MEDS: ACETAMINOPHEN 325 MG TAB PO PRN (20:08)
[2023-10-16] MEDS: CARBOHYDRATES FOR HYPOGLYCEMIA PO PRN (00:49)
--- NOTE | 2023-10-16 07:51 | Hospitalist Progress Note ---
Date of Service October 16, 2023 Assessment & Plan (1) Weakness: Plan: 88 M with PMH DM2, CKD 3 HTN, HLD, BPH, hypothyroidism, and moderate aortic stenosis, presenting to ER with progressive, generalized, nonfocal LE weakness in the setting of recent R otitis media . remains with metabolic encephalopathy from hyponatremia -Patient afebrile. Respiratory biofire normal. CXR- no acute chest disease. Tick borne screen negative. Babesia DNA pending -WBC WNL, CRP neg - Echo: EF 60-65% with severe LVH, aortic stenosis still moderate but the aortic transvalvular gradient/velocity has increased -orthostatic VS positive again 10/14 - additional 1L IVF - recheck AM - AM cortisol WNL - PT/OT - recommend rehab - [facility], pt still with encephalopathy from hyponatremia, (2) Hyponatremia: Plan: has fallen again was given 1000 LR yesterday, now will fluid restrict, give 100ml 3% sodium and check urine osm this is still low nephrology consult -Etiology unclear denies reduced p.o. intake, is otherwise asymptomatic. * urine osm 427, urine Na 76 (after fluids), serum os 281 - received 1L IVF due to orthostasis the extra fluid load likely exacerbated his hyponatremia (3) Acute right otitis media: Plan: -Improving. now without symptoms continue course of amoxicillin 875 mg twice daily (last dose 10/17). - Continue p.o. amoxicillin 875 mg (4) Elevated troponin: Plan: -21.9 on admission. Trop peaked at 26. CXR appears unchanged from last. ECG without ischemic changes, ECHO no WMAs, with preserved EF< severe LVH, mod Likely demand ischemia. -No chest pain, dyspnea on exertion, SOB at rest, focal deficits/hemiparesis, epigastric pain, or hypoxia on pulse ox. (5) Aortic stenosis: Plan: -Discovered on stress echo 11/28/2022. Report read by Dr. Fonseca. Started on metoprolol tartrate 50 mg twice daily. - Echo: EF 60-65% with severe LVH, aortic stenosis still moderate but the aortic transvalvular gradient/velocity has increased Suspect component of dehydration contributing to patients presentation Discussed with Dr. Carranza/Cardiology - no inpatient needs at this time, recommend outpatient cardiology follow up (6) Diabetes mellitus type 2, insulin dependent: Plan: Home reigment: lantus 40unit BID and Metfomin 1000mg BID (held) Was receiving 30unit BID - hypoglycemia episode AM 10/14, pt symptomatic - decreased lantus to 20 units BID *patient reports hypoglycemic episodes at home, likely needs decreased insulin at discharge updated at bedside Plan Chronic stable medical problems * HLD - continue statin * Hypothyroid - continue Synthroid * Factor V Leiden - no DVT or PE DVT proh: Lovenox SQ Dispo: continued inpatient stay Admission and Anticipated Discharge Date Admission Date: October 15, 2023 Subjective pt was mildly confused, non focal, did not understand commands for neuro exam sodium did drop again today, unclear cause Physical Exam Physical Exam: pt is conversant but cannot provide answers to questions says 'i dont understand the question" non focal no facial droop or asymetry 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 moves legs equally Results & Data Results & Data Vital Signs (Past 12 Hours) Vital Signs Temp Pulse Resp BP Pulse Ox O2 Del Method 10/16/23 07:46 98.6 F 96 H 20 108/66 94 Room Air 10/15/23 20:04 98.4 F 77 16 122/72 95 Room Air Laboratory Results review cbc review chemistry PG Care Time/CCT Total # of Minutes Spent Total Time Spent with Patient: Total time spent is greater than 50% in coordination of care (as documented) at patient's floor/unit and/or counseling patient: Coding Level of Care Code 39868 SUB INP/OBS CARE 2/35MIN Diagnoses Weakness R53.1 Hyponatremia E87.1 Acute right otitis media H66.91 Elevated troponin R79.89 Aortic stenosis I35.0 Diabetes mellitus type 2, insulin dependent E11.9; Z79.4
[2023-10-16] MEDS: MIDODRINE HCL 2.5 MG TAB PO SCH (10:03)
[2023-10-16 10:16] LABS: Hematocrit (blood only) 35.8 % (42.0-52.0); Hemoglobin 12.3 g/dl (14.0-18.0); Mean Corpuscular Hemoglobin 29.4 pg (25.0-34.0); Mean Corpuscular Hgb Conc 34.4 g/dL (32.0-36.0); Mean Corpuscular Volume 85.6 fL (80.0-100.0); Mean Platelet Volume 10.8 fL (9.4-12.4); Platelet Count 269 K/uL (130-400); RDW Coefficient of Variation 13.6 % (11.5-14.5); RDW Standard Deviation 42.3 fL (36.4-46.3); Red Blood Count 4.18 M/uL (4.70-6.10); White Blood Count 7.91 K/ul (4.8-10.8)
[2023-10-16 10:32] LABS: BUN Creatinine Ratio 15.5 (10-20); Calcium 9.1 mg/dl (8.6-10.3); Creatinine Clr Calc Pharmacy 37.3 ml/min; Est GFR (African American) 51.5 ml/min; Est GFR (Non-African American) 44.4 ml/min; Potassium 4.2 mmol/L (3.5-5.1)
[2023-10-16] MEDS ORDERED: STAT IV/IM STA (11:07)
[2023-10-16] MEDS: SODIUM CHLORIDE 3 % 100 ML IV ONE (11:20)
[2023-10-16 14:52] LABS: BUN Creatinine Ratio 15.1 (10-20); Calcium 9.5 mg/dl (8.6-10.3); Creatinine Clr Calc Pharmacy 36.3 ml/min; Est GFR (African American) 49.8 ml/min; Est GFR (Non-African American) 42.9 ml/min; Potassium 4.3 mmol/L (3.5-5.1)
--- NOTE | 2023-10-16 16:21 | Nephrology Consultation ---
Date of Consultation October 16, 2023 Assessment & Plan (1) Hyponatremia: Chronic, moderate. Symptoms may include dysequilibrium and some fatigue. Euvolemic on exam. Clinical history consistent with SIADH. Appropriate response to hypertonic fluids. Oral NaCl 1 gram will be provided overnight. Maintain 1.5 L daily fluid restriction. Repeat metabolic profile and urine osmolality in the AM. Document I/O's. (2) CKD (chronic kidney disease) stage 3, GFR 30-59 ml/min: CKD attributed to DKD and hypertension. Baseline creatinine 1.0-1.4 mg/dL. Medications are appropriately dosed for kidney function. (3) Aortic stenosis: Moderate. Cardiology evaluation reviewed. (4) Acute right otitis media: Clinically improving. Remains on amoxicillin. Management per hospitalist. (5) Hypothyroidism: TSH acceptable. Levothyroxine 200 mcg daily. History of Present Illness Attending Physician: David Ndiaye MD History of Present Illness Rob Olvera is an 88 year-old male with diabetes mellitus II, CKD III A1-2 (baseline creatinine 1.0-1.3 mg/dL; MACR 44 mcg/mg), hypertension, hypothyroidism, hyperlipidemia, asthma, BPH, and moderate aortic valve stenosis who presented to the ER at [facility] on October 12 with weakness and dizziness. Symptoms started approximately 2 weeks ago. Rob was evaluated by his PCP and at [facility]. He was diagnosed with otitis media and started on a course of amoxicillin and prednisone on October 08. Symptoms progressed after starting therapy. He presented to the ER with profound weakness and difficulty getting out of bed or supporting his own weight. Appetite had been poor. This has significantly improved. Rob was seen and evaluated this afternoon with his at the bedside. She provided the majority of the medical history and answered most questions. Rob denies fluid retention or edema. He denies diarrhea, nausea or vomiting. Laboratory evaluation was notable for a serum sodium of 128 mmol/L. Sodium was 137 mmol/L ~2 weeks prior to admission. Rob was found to be volume depleted and provided an infusion of isotonic fluids. Serum sodium initially improved slightly to 131 mmol/L but dropped to 126 mmol/L this AM. A fluid restriction of 1500 ml daily has been ordered. Sodium improved to 129 mmol/L following a 3% saline x 100 ml bolus. AM cortisol was checked and found to be within normal range. TSH 1.173. Uosm 427 with Yoandy 76. Creatinine stable at 1.4 mg/dL. Allergies Allergy/AdvReac Type Severity Reaction Status Date / Time lisinopril Allergy Intermediate muscle Verified 10/13/23 23:32 pain, rash losartan AdvReac Unknown CAN'T Verified 10/13/23 23:32 REMEMBER Home Medications Medication Instructions Recorded Confirmed Type cinnamon bark 500 mg capsule 500 mg PO BID 10/25/18 10/13/23 History (Cinnamon) omega-3 fatty acids 1,000 mg 1,200 mg PO QAM 10/25/18 10/13/23 History capsule desonide 0.05 % topical ointment 1 appln topical BID PRN Skin 02/16/19 10/13/23 History Irritation #1 g albuterol sulfate 90 mcg/actuation 2 puffs inhalation Q6H PRN 02/17/19 10/13/23 Rx aerosol inhaler (Ventolin HFA) shortness of breath or wheezing #8 grams aspirin 81 mg tablet,delayed 81 mg PO QAM 02/17/19 10/13/23 History release blood sugar diagnostic (i'mmaTouch #100 ea 10/29/21 09/29/23 Rx Ultra Test strips) blood-glucose meter (i'mmaTouch #1 ea 10/29/21 09/29/23 Rx Ultra2 Meter kit) lancets ([employer] UltraSoft #100 ea 10/29/21 09/29/23 Rx Lancets) ascorbic acid (vitamin C) 1,000 mg 1,000 mg PO QAM 03/24/22 10/13/23 History tablet,extended release (Vitamin C ER) blood-glucose sensor (Dexcom G7 #1 ea 06/30/22 09/29/23 Rx Sensor device) blood-glucose meter,continuous #1 ea 08/07/22 09/29/23 Rx (Dexcom G7 Shipping And Receiving Associate) levothyroxine 200 mcg tablet 200 mcg PO DAILY #30 tabs 10/31/22 10/13/23 Rx rosuvastatin 10 mg tablet 5 mg PO DAILY 01/06/23 10/13/23 History metformin 1,000 mg tablet 1,000 mg PO BID #180 tabs 08/05/23 10/13/23 Rx metoprolol tartrate 50 mg tablet 50 mg PO BID #180 tabs 08/05/23 10/13/23 Rx amoxicillin 875 mg tablet 875 mg PO BID 10/13/23 10/13/23 History clotrimazole-betamethasone 1 1 applic topical HS 10/13/23 10/13/23 History %-0.05 % topical cream insulin glargine 100 unit/mL (3 40 unit subcut BID 10/13/23 10/13/23 History mL) subcutaneous pen (Lantus Solostar U-100 Insulin) vitamin B complex 1 tab PO DAILY 10/13/23 10/13/23 History Patient History Medical History BPH (benign prostatic hyperplasia) Anemia Stable Asthma rare res inh use > can't remember last use Surgical History Hx of melanoma excision History of colonoscopy History of tooth extraction History of cataract surgery S/P prostatectomy S/P wisdom tooth extraction Family History Unknown Diabetes Heart disease History of nephrolithiasis Mother Diabetes Breast cancer Colorectal cancer Father Myocardial infarction Sister Factor V Leiden mutation Denies family history of Ovarian cancer Prostate cancer Social History Smoking Status: Former smoker Tobacco Type: Cigarettes Age Started Using Tobacco: 20; Age Quit Using Tobacco: 40; packs per day: 1; Second Hand Exposure: No; Do You Dip or Chew Tobacco: No; Tobacco Cessation Education Requested by Patient: No Hx Alcohol Use: Yes Alcohol type: beer, wine and hard liquor Alcohol Intake Frequency: 2-4 x/Month Hx Substance Use: No Preferred Language: Greenlandic Communication Ability: Effective Visual Impairment: No Limitations Hearing Ability: Use of Hearing Aid Nuclear Power Plant Engineer Required: No Beliefs That Will Affect Care: None marital status: Current Living Situation: Spouse Current Living Situation Comment: Lives at home with current occupational status: retired 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 Other Information That Helps Us Care for You: No Feels Safe at Home: Yes Safety Concerns: Feels Safe At This Time Childhood Exposure to Second-Hand Smoke: Yes Diet: regular Dental Care, Regularly: Yes Physical Activity Frequency: 3-4 Times per Week Seatbelt Use: always Sunscreen Use: No Assistive Devices: Cane and Glasses Review of Systems Review of Systems: All systems reviewed & are unremarkable except as noted in HPI & below Physical Exam Constitutional: well developed and + frail appearing; no acute distress Eyes: + anicteric sclerae; no corneal abnormal ity ENMT: Mouth: no oral mucosal abnormality and oral mucous membranes not dry Neck: normal visual inspection and trachea midline Respiratory: normal respiratory effort Auscultation: lungs clear to auscultation bilaterally Cardiovascular: Rate/Rhythm: regular rate Heart Sounds: normal S1, normal S2 and + murmur Extremities: no edema Musculoskeletal: Extremities: no cyanosis and no clubbing Skin: + turgor decreased; no jaundice Neurologic: Motor/Sensory: no tremor and no asterixis Psychiatric: Orientation: alert Results & Data Vital Signs (Past 12 Hours) Vital Signs Temp Pulse Resp BP Pulse Ox O2 Del Method 10/16/23 14:42 37.4 C 74 20 114/59 L 92 Room Air 10/16/23 07:46 37 C 96 H 20 108/66 94 Room Air Laboratory Results Laboratory Results - last 24 hr 10/15/23 10/15/23 10/16/23 16:43 20:12 00:33 WBC RBC Hgb Hct MCV MCH MCHC RDW Std Deviation RDW Coeff of Stacia Plt Count MPV Sodium Potassium Chloride Carbon Dioxide Anion Gap BUN Creatinine Est Cr Clr Drug Dosing Est GFR ( Amer) Est GFR (Non-Af Amer) BUN/Creatinine Ratio Glucose POC Glucose 122 H 128 H 69 L* Calcium Urine Osmolality 10/16/23 10/16/23 10/16/23 01:05 01:07 01:10 WBC RBC Hgb Hct MCV MCH MCHC RDW Std Deviation RDW Coeff of Stacia Plt Count MPV Sodium Potassium Chloride Carbon Dioxide Anion Gap BUN Creatinine Est Cr Clr Drug Dosing Est GFR ( Amer) Est GFR (Non-Af Amer) BUN/Creatinine Ratio Glucose POC Glucose 57 L* 75 65 L* Calcium Urine Osmolality 10/16/23 10/16/23 10/16/23 01:31 07:28 09:00 WBC 7.91 RBC 4.18 L Hgb 12.3 L Hct 35.8 L MCV 85.6 MCH 29.4 MCHC 34.4 RDW Std Deviation 42.3 RDW Coeff of Stacia 13.6 Plt Count 269 MPV 10.8 Sodium 126 L Potassium 4.2 Chloride 92 L Carbon Dioxide 25 Anion Gap 9 BUN 22 Creatinine 1.42 H D Est Cr Clr Drug Dosing 37.3 Est GFR ( Amer) 51.5 Est GFR (Non-Af Amer) 44.4 BUN/Creatinine Ratio 15.5 Glucose 125 H 199 H POC Glucose 182 H Calcium 9.1 Urine Osmolality 10/16/23 10/16/23 10/16/23 11:45 14:12 16:34 WBC RBC Hgb Hct MCV MCH MCHC RDW Std Deviation RDW Coeff of Stacia Plt Count MPV Sodium 129 L Potassium 4.3 Chloride 94 L Carbon Dioxide 29 Anion Gap 6 BUN 22 Creatinine 1.46 H Est Cr Clr Drug Dosing 36.3 Est GFR ( Amer) 49.8 Est GFR (Non-Af Amer) 42.9 BUN/Creatinine Ratio 15.1 Glucose 92 POC Glucose 92 95 Calcium 9.5 Urine Osmolality 10/16/23 Unknown WBC RBC Hgb Hct MCV MCH MCHC RDW Std Deviation RDW Coeff of Stacia Plt Count MPV Sodium Potassium Chloride Carbon Dioxide Anion Gap BUN Creatinine Est Cr Clr Drug Dosing Est GFR ( Amer) Est GFR (Non-Af Amer) BUN/Creatinine Ratio Glucose POC Glucose Calcium Urine Osmolality 481 L Diagnostic Findings XR chest 1V portable Comparison: Comparison is made to chest radiograph 08/24/2023 FINDINGS: No lines and tubes are seen. Calcified aortic knob is seen. The lungs are clear. No evidence of pleural effusion or pneumothorax. Skinfolds are noted on the right. IMPRESSION: No acute chest disease. PG Care Time/CCT Total # of Minutes Spent Total Time Spent with Patient: Total time spent is greater than 50% in coordination of care (as documented) at patient's floor/unit and/or counseling patient: Coding Level of Care Code 90829 IN/OBS CONSULT LVL 4,60M Diagnoses Hyponatremia E87.1 CKD (chronic kidney disease) stage 3, GFR 30-59 ml/min N18.3 Aortic stenosis I35.0 Acute right otitis media H66.91 Hypothyroidism E03.9
[2023-10-16] MEDS: SODIUM CHLORIDE 1 GM TABLET PO STA (19:15)
[2023-10-16] MEDS: MELATONIN 3 MG TAB PO ONE (21:03)
--- NOTE | 2023-10-17 06:36 | Electrocardiogram Report ---
Test Reason : Blood Pressure : / mmHG Vent. Rate : 092 BPM Atrial Rate : 092 BPM P-R Int : 190 ms QRS Dur : 086 ms QT Int : 364 ms P-R-T Axes : 041 005 030 degrees QTc Int : 450 ms Sinus rhythm with Premature supraventricular complexes and with occasional Premature ventricular comp lexes Nonspecific ST and T wave abnormality Abnormal ECG When compared with ECG of 13-OCT-2023 21:14, Premature ventricular complexes are now Present Premature supraventricular complexes are now Present Nonspecific T wave abnormality now evident in Anterolateral leads Confirmed by Alvarez Fonseca ([id number]) on 10/17/2023 6:36:27 AM Referred By: REFERRED SELF Confirmed By:Zoran Fonseca
[2023-10-17 06:41] LABS: Hematocrit (blood only) 32.7 % (42.0-52.0); Hemoglobin 11.1 g/dl (14.0-18.0); Mean Corpuscular Hemoglobin 29.7 pg (25.0-34.0); Mean Corpuscular Hgb Conc 33.9 g/dL (32.0-36.0); Mean Corpuscular Volume 87.4 fL (80.0-100.0); Mean Platelet Volume 10.2 fL (9.4-12.4); Platelet Count 244 K/uL (130-400); RDW Coefficient of Variation 13.5 % (11.5-14.5); RDW Standard Deviation 42.7 fL (36.4-46.3); Red Blood Count 3.74 M/uL (4.70-6.10); White Blood Count 6.28 K/ul (4.8-10.8)
[2023-10-17 06:59] LABS: BUN Creatinine Ratio 14.1 (10-20); Calcium 8.8 mg/dl (8.6-10.3); Creatinine Clr Calc Pharmacy 41.4 ml/min; Est GFR (African American) 58.3 ml/min; Est GFR (Non-African American) 50.3 ml/min
[2023-10-17] MEDS: SODIUM CHLORIDE 1 GM TABLET PO SCH (10:53)
--- NOTE | 2023-10-17 11:58 | Nephrology Progress Note ---
Date of Service October 17, 2023 Assessment & Plan (1) Hyponatremia: Plan: * Clinical history consistent with SIADH. * Maintain 1.5 L daily fluid restriction. * Increase NaCl to 1 g p.o. twice daily * BMP, urine osmolality in am * Document I/O's. (2) CKD (chronic kidney disease) stage 3, GFR 30-59 ml/min: Plan: * CKD attributed to DKD and hypertension. Baseline creatinine 1.0-1.4 mg/dL. (3) Aortic stenosis: Plan: * Moderate. Cardiology evaluation reviewed. (4) Acute right otitis media: Plan: * Clinically improving. Remains on amoxicillin. Management per hospitalist. (5) Hypothyroidism: Plan: * TSH acceptable. Levothyroxine 200 mcg daily. Admission and Anticipated Discharge Date Admission Date: October 15, 2023 Subjective Mr. Olvera was evaluated in his hospital room this morning. He awaken to voice and was able to follow simple commands. He reports that he tolerated oral sodium chloride yesterday without GI upset. Review of Systems Constitutional: no fever Eyes: no problem reported Ear, Nose, Mouth, Throat: no problem reported Respiratory: no cough and no dyspnea Cardiovascular: no chest pain Gastrointestinal: no abdominal pain, no nausea, no vomiting and no diarrhea/loose stools Genitourinary: no dysuria or no hematuria Integumentary: no rash Physical Exam Constitutional: not in distress Eyes: PERRL, conjunctivae normal, anicteric sclerae ENMT: external ear and nose normal, oropharynx normal Neck: trachea midline, no thyromegaly Respiratory: normal respiratory effort, lungs clear to auscultation Cardiovascular: RRR, no murmur, no edema Gastrointestinal (Abdomen): normal bowel sounds, soft, nontender, no hepatosplenomegaly Skin: no rashes, warm and dry + turgor decreased Neurologic: Speech / Cognition: normal speech and normal cognition Results & Data Vital Signs (Past 12 Hours) Vital Signs Temp Pulse Pulse Pulse Resp BP Pulse Ox 10/17/23 11:12 36.9 C 73 16 132/76 95 10/17/23 07:56 37.1 C 73 16 126/72 96 10/17/23 07:26 76 10/17/23 04:03 37.2 C 67 18 139/71 95 O2 Del Method 10/17/23 11:12 Room Air 10/17/23 07:56 Room Air 10/17/23 07:26 10/17/23 04:03 Room Air Laboratory Results Laboratory Results - last 24 hr 10/16/23 10/16/23 10/16/23 14:12 16:34 20:19 WBC RBC Hgb Hct MCV MCH MCHC RDW Std Deviation RDW Coeff of Stacia Plt Count MPV Sodium 129 L Potassium 4.3 Chloride 94 L Carbon Dioxide 29 Anion Gap 6 BUN 22 Creatinine 1.46 H Est Cr Clr Drug Dosing 36.3 Est GFR ( Amer) 49.8 Est GFR (Non-Af Amer) 42.9 BUN/Creatinine Ratio 15.1 Glucose 92 POC Glucose 95 129 H Calcium 9.5 Urine Osmolality 10/16/23 10/17/23 10/17/23 Unknown 05:55 07:25 WBC 6.28 RBC 3.74 L Hgb 11.1 L Hct 32.7 L MCV 87.4 MCH 29.7 MCHC 33.9 RDW Std Deviation 42.7 RDW Coeff of Stacia 13.5 Plt Count 244 MPV 10.2 Sodium 130 L Potassium 4.0 Chloride 95 L Carbon Dioxide 30 Anion Gap 5 BUN 18 Creatinine 1.28 Est Cr Clr Drug Dosing 41.4 Est GFR ( Amer) 58.3 Est GFR (Non-Af Amer) 50.3 BUN/Creatinine Ratio 14.1 Glucose 85 POC Glucose 89 Calcium 8.8 Urine Osmolality 481 L 10/17/23 11:14 WBC RBC Hgb Hct MCV MCH MCHC RDW Std Deviation RDW Coeff of Stacia Plt Count MPV Sodium Potassium Chloride Carbon Dioxide Anion Gap BUN Creatinine Est Cr Clr Drug Dosing Est GFR ( Amer) Est GFR (Non-Af Amer) BUN/Creatinine Ratio Glucose POC Glucose 145 H Calcium Urine Osmolality PG Care Time/CCT Total # of Minutes Spent Total Time Spent with Patient: Total time spent is greater than 50% in coordination of care (as documented) at patient's floor/unit and/or counseling patient: Coding Level of Care Code 25702 SUB INP/OBS CARE 3/50MIN Diagnoses Hyponatremia E87.1 CKD (chronic kidney disease) stage 3, GFR 30-59 ml/min N18.3 Aortic stenosis I35.0 Acute right otitis media H66.91 Hypothyroidism E03.9
[2023-10-17] MEDS: FLUTICASONE PROPIONATE NA SPR 16 GM BTL NAE SCH (13:51)
[2023-10-17] MEDS: FEXOFENADINE 60 MG TAB PO ONE (13:51)
--- NOTE | 2023-10-17 14:02 | Hospitalist Progress Note ---
Date of Service October 17, 2023 Assessment & Plan (1) Weakness: Plan: was orthostatic upon admission 10/13 and then again 10/14 now improved/resolved he denies dizziness he denies residual vertigo suspect that the cause of his R ear complaints was the helper/driver for his hyponatremia and weakness statistically an inner ear infection caused by a virus would have been the culprit I don't see a typical AOM on the right today although it is possible it is resolved as he was dx with the AOM on 10/09/23 (nearly 8-9 days ago) due to the recent vertigo, confusion, etc will obtain brain MRI to r/o subacute CVA as the cause of his presentation cont PT/OT dispo - [facility] for rehab post-d/c B12 level in 03/2023 was borderline low - plan to repeat tomorrow am of note - placed on midodrine yesterday for orthostasis will recheck orthostatics daily (2) Vertigo: Plan: statistically the vertigo was likely due to an acute viral vestibular neuronitis of the inner ear on the right given his age and multiple CVA risk factors, however, will obtain MRI brain to r/o subacute brainstem stroke fortunately the vertigo has resolved as of several days ago (3) Hyponatremia: Plan: clinical picture, labs, etc c/w SIADH SIADH triggered by a recent viral process?? appreciate nephrology assistance cont salt tab supplementation & fluid restriction serial BMPs (4) Acute right otitis media: Plan: dx 10/09/23 at local urgent care has been on amoxicillin 875 mg twice daily since then last dose 10/17 I rechecked his ear today - there is no residual acute inflammatory findings There is some retraction of the TM and probably some residual serous fluid Start karlee 60mg BID Start nasocort 2 sprays daily Valsalva maneuvers to help equalize the middle ear pressure Finish abx course (5) Elevated troponin: Plan: 21.9 on admission. Trop peaked at 26. CXR appears unchanged from last. ECG without ischemic changes, ECHO w/o WMAs and preserved EF Likely myocardial demand ischemia in the setting of his acute illness (6) Aortic stenosis: Plan: moderate on echo f/u with [facility] [place] (7) Diabetes mellitus type 2, insulin dependent: Plan: Home regimen -- lantus 40units BID and Metfomin 1000mg BID (held) Was receiving 30unit BID of lantus & developed hypoglycemia Thus, decreased lantus to 20 units BID BSGs controlled Cont novolog SSI of note - patient reports hypoglycemic episodes at home; likely needs decreased insulin at discharge Plan Chronic issues - * Hyperlipidemia - continue statin * Hypothyroid - TSH wnl; continue Synthroid * Factor V Leiden - no hsitory of DVT or PE, however, and he is not on chronic anticoagulation DVT proph - Lovenox SQ daily Dispo - [facility] Cont PT/OT in meantime Admission and Anticipated Discharge Date Admission Date: October 15, 2023 Subjective overnight patient had increasing confusion there were multiple nursing concerns in addition to the confusion out of abundance of caution & for closer monitoring patient transferred to telemetry during rounds patient's was at bedside she feels he is doing much better in comparison to admission less confused this am better appetite major complaint is that of right ear fullness and "an ache" denies tinnitus or hearing loss denies URI symptoms or cough/congestion he did have vertigo for a couple of days at home last week when he was initially dx with the AOM on the right during that time he was unsteady on his feet but did not fall Review of Systems Review of Systems: gen - no fevers or chills cv - no chest pain pulm - no dyspnea GI - no abd pain or N/V; he did have the latter last week when he had vertigo neuro - no headache, no focal motor weakness Physical Exam Physical Exam: gen - NAD, looks tired but nontoxic eyes - PERRL, lens implant on left; few beats of horizontal nystagmus with right-felix gaze; visual daiz full by direct confrontation all quadrants ears - right TM retracted, clear fluid present; no loss of landmarks; light reflex present; left TM largely normal; canals normal; mild cerumen only mouth - MMM heart - RRR, s1 s2, 2/6 holosystolic murmur RUSB lungs - CTA b/l abd - soft NT ND BS+ ext - no edema, pulses 2+ b/l neuro - cn 3-12 intact except mild left eye droop; DTRs 2+ b/l upper & lower exts; strength 5/5 x 4 exts psych - a/o x 3 Results & Data Results & Data Vital Signs (Past 12 Hours) Vital Signs Temp Pulse Pulse Pulse Resp BP Pulse Ox 10/17/23 11:12 36.9 C 73 16 132/76 95 10/17/23 07:56 37.1 C 73 16 126/72 96 10/17/23 07:26 76 10/17/23 04:03 37.2 C 67 18 139/71 95 O2 Del Method 10/17/23 11:12 Room Air 10/17/23 07:56 Room Air 10/17/23 07:26 10/17/23 04:03 Room Air Laboratory Results Laboratory Results - last 24 hr 10/16/23 10/16/23 10/16/23 14:12 16:34 20:19 Sodium 129 L Potassium 4.3 Chloride 94 L Carbon Dioxide 29 Anion Gap 6 BUN 22 Creatinine 1.46 H Est Cr Clr Drug Dosing 36.3 Est GFR ( Amer) 49.8 Est GFR (Non-Af Amer) 42.9 BUN/Creatinine Ratio 15.1 Glucose 92 POC Glucose 95 129 H Calcium 9.5 10/16/23 10/17/23 10/17/23 Unknown 05:55 07:25 WBC 6.28 RBC 3.74 L Hgb 11.1 L Hct 32.7 L MCV 87.4 MCH 29.7 MCHC 33.9 RDW Std Deviation 42.7 RDW Coeff of Stacia 13.5 Plt Count 244 MPV 10.2 Sodium 130 L Potassium 4.0 Chloride 95 L Carbon Dioxide 30 Anion Gap 5 BUN 18 Creatinine 1.28 Est Cr Clr Drug Dosing 41.4 Est GFR ( Amer) 58.3 Est GFR (Non-Af Amer) 50.3 BUN/Creatinine Ratio 14.1 Glucose 85 POC Glucose 89 Calcium 8.8 Urine Osmolality 481 L PG Care Time/CCT Total # of Minutes Spent Total Time Spent with Patient: Total time spent is greater than 50% in coordination of care (as documented) at patient's floor/unit and/or counseling patient: Coding Level of Care Code 56221 SUB INP/OBS CARE 3/50MIN Diagnoses Weakness R53.1 Vertigo R42 Hyponatremia E87.1 Acute right otitis media H66.91 Elevated troponin R79.89 Aortic stenosis I35.0 Diabetes mellitus type 2, insulin dependent E11.9; Z79.4
--- NOTE | 2023-10-17 14:45 | XRay Report ---
XR orbits for MRI CLINICAL HISTORY: Screening for foreign body for MRI TECHNIQUE: AP and lateral views of the orbits were submitted for interpretation. Comparison: None available at the time of this dictation. FINDINGS/IMPRESSION: There are no radiopaque metallic foreign bodies. The osseous structures are unremarkable. Patient is cleared for MRI. ACT 112: Negative or not required by law. Electronically signed by: Jimmie Andrade M.D. 10/17/2023 2:44 PM
--- NOTE | 2023-10-17 15:28 | Magnetic Resonance Report ---
MR brain wo con CLINICAL HISTORY: recent vertigo, LE weakness; eval subacute CVA TECHNIQUE: Multiplanar and multisequence MR images of the brain were obtained without intravenous con trast. Comparison: None available at the time of this dictation. FINDINGS: No abnormal restricted diffusion is identified. Foci of T2 and FLAIR hyperintensity are noted in the paraventricular areas consistent with chronic small vessel ischemic disease. Ex vacuo ventriculomegal y and sulcal enlargement is noted compatible with diffuse volume loss. No mass is seen. There is no m ass effect or midline shift. There is no evidence of acute intraparenchymal hemorrhage. No extra axia l fluid collections are seen. The corpus callosum, pituitary gland, and cerebellar tonsils appear rita ssly unremarkable. Flow voids of the major intracranial arterial vessels are identified. The imaged portions of the para nasal sinuses, mastoid air cells, and orbits are unremarkable. IMPRESSION: No acute abnormality and in particular no evidence of acute infarct. ACT 112: Negative or not required by law. Electronically signed by: Jimmie Andrade M.D. 10/17/2023 3:26 PM
[2023-10-17] MEDS: FEXOFENADINE 60 MG TAB PO SCH (20:40)
[2023-10-18 05:26] LABS: BUN Creatinine Ratio 13.3 (10-20); Calcium 9.3 mg/dl (8.6-10.3); Creatinine Clr Calc Pharmacy 39.3 ml/min; Est GFR (African American) 54.7 ml/min; Est GFR (Non-African American) 47.2 ml/min; Potassium 3.7 mmol/L (3.5-5.1)
[2023-10-18 05:52] LABS: Folate (Folic Acid),Ser orPlas > 22.30 ng/ml (>5.38)
[2023-10-18 05:53] LABS: Vitamin B12 409 pg/ml (180-914)
[2023-10-18 06:52] LABS: Babesia microti DNA Not Detected (Not Detected)
--- NOTE | 2023-10-18 09:31 | Nephrology Progress Note ---
Date of Service October 18, 2023 Assessment & Plan (1) Hyponatremia: Plan: * Clinical history consistent with SIADH. * Serum sodium has dropped from 130 to 128 mmol/dL this a.m. * Maintain 1.5 L daily fluid restriction. * Increase NaCl to 2 g p.o. twice daily * Urine osmolality remains inappropriately elevated at 402 * Start Bumex 0.5 mg po BID * BMP at 2 pm today * BMP, urine osmolality in am * Document I/O's. (2) CKD (chronic kidney disease) stage 3, GFR 30-59 ml/min: Plan: * CKD attributed to DKD and hypertension. Baseline creatinine 1.0-1.4 mg/dL. (3) Aortic stenosis: Plan: * Moderate. Cardiology evaluation reviewed. (4) Acute right otitis media: Plan: * Clinically improving. Remains on amoxicillin. Management per hospitalist. (5) Hypothyroidism: Plan: * TSH acceptable. Levothyroxine 200 mcg daily. Admission and Anticipated Discharge Date Admission Date: October 15, 2023 Subjective Mr. Olvera was evaluated in his hospital room this morning. He thought that we were at [facility] but was otherwise oriented to self and month. He tolerated oral sodium chloride yesterday without GI upset. Review of Systems Constitutional: no fever Eyes: no problem reported Ear, Nose, Mouth, Throat: no problem reported Respiratory: no cough and no dyspnea Cardiovascular: no chest pain Gastrointestinal: no abdominal pain, no nausea, no vomiting and no diarrhea/loose stools Genitourinary: no dysuria or no hematuria Integumentary: no rash Physical Exam Constitutional: not in distress Eyes: PERRL, conjunctivae normal, anicteric sclerae ENMT: external ear and nose normal, oropharynx normal Neck: trachea midline, no thyromegaly Respiratory: normal respiratory effort, lungs clear to auscultation Cardiovascular: RRR, no murmur, no edema Gastrointestinal (Abdomen): normal bowel sounds, soft, nontender, no hepatosplenomegaly Skin: no rashes, warm and dry + turgor decreased Neurologic: Speech / Cognition: normal speech and normal cognition Results & Data Vital Signs (Past 12 Hours) Vital Signs Temp Pulse Pulse Resp BP Pulse Ox O2 Del Method 10/18/23 08:00 36.8 C 73 18 130/63 96 Room Air 10/18/23 07:06 67 08/04/24 02:41 36.9 C 66 20 144/71 H 96 Room Air 10/18/23 00:00 63 10/17/23 22:51 36.9 C 69 18 124/76 97 Room Air Laboratory Results Laboratory Results - last 24 hr 10/14/23 10/17/23 10/17/23 05:52 11:14 16:24 Sodium Potassium Chloride Carbon Dioxide Anion Gap BUN Creatinine Est Cr Clr Drug Dosing Est GFR ( Amer) Est GFR (Non-Af Amer) BUN/Creatinine Ratio Glucose POC Glucose 145 H 118 H Calcium Vitamin B12 Folate Urine Osmolality Babesia microti DNA PCR Not Detected 10/17/23 10/18/23 10/18/23 19:53 04:35 07:24 Sodium 128 L Potassium 3.7 Chloride 92 L Carbon Dioxide 27 Anion Gap 9 BUN 18 Creatinine 1.35 Est Cr Clr Drug Dosing 39.3 Est GFR ( Amer) 54.7 Est GFR (Non-Af Amer) 47.2 BUN/Creatinine Ratio 13.3 Glucose 85 POC Glucose 167 H 81 Calcium 9.3 Vitamin B12 409 Folate > 22.30 Urine Osmolality Babesia microti DNA PCR 10/18/23 Unknown Sodium Potassium Chloride Carbon Dioxide Anion Gap BUN Creatinine Est Cr Clr Drug Dosing Est GFR ( Amer) Est GFR (Non-Af Amer) BUN/Creatinine Ratio Glucose POC Glucose Calcium Vitamin B12 Folate Urine Osmolality 402 L Babesia microti DNA PCR PG Care Time/CCT Total # of Minutes Spent Total Time Spent with Patient: Total time spent is greater than 50% in coordination of care (as documented) at patient's floor/unit and/or counseling patient: Coding Level of Care Code 93722 SUB INP/OBS CARE 3/50MIN Diagnoses Hyponatremia E87.1 CKD (chronic kidney disease) stage 3, GFR 30-59 ml/min N18.3 Aortic stenosis I35.0 Acute right otitis media H66.91 Hypothyroidism E03.9
[2023-10-18] MEDS: BUMETANIDE 1 MG TAB PO SCH (10:04)
[2023-10-18] MEDS: SODIUM CHLORIDE 1 GM TABLET PO ONE (10:04)
[2023-10-18] MEDS: ACETAMINOPHEN 500 MG TAB PO SCH (13:21)
[2023-10-18 14:28] LABS: BUN Creatinine Ratio 15.4 (10-20); Calcium 9.1 mg/dl (8.6-10.3); Creatinine Clr Calc Pharmacy 40.8 ml/min; Est GFR (African American) 57.3 ml/min; Est GFR (Non-African American) 49.4 ml/min
--- NOTE | 2023-10-18 19:52 | Hospitalist Progress Note ---
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 and weakness statistically an inner ear infection caused by a virus would have been the culprit MRI brain did not show any acute or subacute CVA as the cause of his presentation cont PT/OT dispo - [facility] for rehab post-d/c B12 level in 03/2023 was borderline low - repeat level today wnl of note - placed on midodrine several days ago for orthostasis - cont for now (2) Vertigo: Plan: statistically the vertigo was likely due to an acute viral vestibular neuronitis of the inner ear on the right given his age and multiple CVA risk factors, however, obtained MRI brain to r/o subacute brainstem stroke - MRI brain was neg for such fortunately the vertigo has resolved as of several days ago (3) Hyponatremia: Plan: clinical picture, labs, etc c/w SIADH SIADH triggered by a recent viral process?? appreciate nephrology assistance cont salt tab supplementation & fluid restriction Dr Hollis adding bumex to promote free water excretion repeat BMP am if Na level remains stubbornly low consider tolvaptan consider CT chest to exclude a chest malignancy (CTA chest several years ago with a 12mm nodule) appreciate Dr Hollis's assistance (4) Acute right otitis media: Plan: dx 10/09/23 at local urgent care has been on amoxicillin 875 mg twice daily since then completes his 10-day course of abx today I rechecked his ears yesterday -- no residual acute inflammatory findings were seen There was some retraction of the right TM and probably some residual serous fluid as well Cont karlee 60mg BID Cont nasocort 2 sprays daily (5) Elevated troponin: Plan: 21.9 on admission. Trop peaked at 26. CXR appears unchanged from last. ECG without ischemic changes, ECHO w/o WMAs and preserved EF Likely myocardial demand ischemia in the setting of his acute illness (6) Aortic stenosis: Plan: moderate on echo f/u with [facility] for routine surveillance (7) Diabetes mellitus type 2, insulin dependent: Plan: Home regimen -- lantus 40units BID and Metfomin 1000mg BID (held) Was receiving 30unit BID of lantus & developed hypoglycemia Thus, decreased lantus to 20 units BID AM BSGs are well controlled thus reduce lantus further to 15 units BID Cont novolog SSI of note - patient reports hypoglycemic episodes at home; likely needs decreased insulin at discharge Plan Chronic issues - * Hyperlipidemia - continue statin * Hypothyroid - TSH wnl; continue Synthroid * Factor V Leiden - no hsitory of DVT or PE, however, and he is not on chronic anticoagulation DVT proph - Lovenox SQ daily Dispo - [facility] Cont PT/OT Pt's daughter extensively updated by phone 10/17/23 Admission and Anticipated Discharge Date Admission Date: October 15, 2023 Subjective patient resting comfortably in bed during the visit reports R ear pain is controlled/"better" denies headache, sinus congestion, cough, dyspnea, abd pain, chest pain or any other new complaints no dizziness with standing asks "when am I getting out of here?" tele overnight - stable, NSR oral intake - 50% of meals mild confusion overnight but no agitation per staff Review of Systems Review of Systems: CV - no chest pain pulm - no dyspnea or PHILLIPS GI - no N/V Physical Exam Physical Exam: gen - NAD, looks similar to yesterday, lying comfortably in bed eyes - PERRL mouth - MMM heart - RRR, s1 s2, 2/6 holosystolic murmur RUSB lungs - CTA b/l abd - soft NT ND BS+ ext - no edema, pulses 2+ b/l Results & Data Results & Data Vital Signs (Past 12 Hours) Vital Signs Temp Pulse Pulse Resp BP Pulse Ox O2 Del Method 10/18/23 15:11 36.7 C 61 18 107/70 97 Room Air 10/18/23 14:43 61 10/18/23 12:07 36.6 C 61 18 114/69 97 Room Air 10/18/23 08:00 36.8 C 73 18 130/63 96 Room Air Laboratory Results Laboratory Results - last 24 hr 10/14/23 10/17/23 10/18/23 05:52 19:53 04:35 Sodium 128 L Potassium 3.7 Chloride 92 L Carbon Dioxide 27 Anion Gap 9 BUN 18 Creatinine 1.35 Est Cr Clr Drug Dosing 39.3 Est GFR ( Amer) 54.7 Est GFR (Non-Af Amer) 47.2 BUN/Creatinine Ratio 13.3 Glucose 85 POC Glucose 167 H Calcium 9.3 Vitamin B12 409 Folate > 22.30 Babesia microti DNA PCR Not Detected 10/18/23 10/18/23 10/18/23 07:24 11:47 13:58 Sodium 126 L Potassium 4.0 Chloride 93 L Carbon Dioxide 25 Anion Gap 8 BUN 20 Creatinine 1.30 Est Cr Clr Drug Dosing 40.8 Est GFR ( Amer) 57.3 Est GFR (Non-Af Amer) 49.4 BUN/Creatinine Ratio 15.4 Glucose 118 H POC Glucose 81 156 H Calcium 9.1 10/18/23 10/18/23 16:11 Unknown POC Glucose 93 Urine Osmolality 402 L PG Care Time/CCT Total # of Minutes Spent Total Time Spent with Patient: Total time spent is greater than 50% in coordination of care (as documented) at patient's floor/unit and/or counseling patient: Coding Level of Care Code 07798 SUB INP/OBS CARE 2/35MIN Diagnoses Weakness R53.1 Vertigo R42 Hyponatremia E87.1 Acute right otitis media H66.91 Elevated troponin R79.89 Aortic stenosis I35.0 Diabetes mellitus type 2, insulin dependent E11.9; Z79.4
[2023-10-18] MEDS: SODIUM CHLORIDE 1 GM TABLET PO SCH (20:13)
[2023-10-18] MEDS: LANTUS PER UNIT CHARGE SQ SCH (21:17)
[2023-10-18] MEDS: MELATONIN 3 MG TAB PO SCH (21:35)
[2023-10-19 08:37] LABS: Potassium 4.2 mmol/L (3.5-5.1)
[2023-10-19 08:43] LABS: BUN Creatinine Ratio 15.7 (10-20); Creatinine Clr Calc Pharmacy 41.8 ml/min; Est GFR (African American) 58.9 ml/min; Est GFR (Non-African American) 50.8 ml/min
--- NOTE | 2023-10-19 09:10 | Nephrology Progress Note ---
Date of Service October 19, 2023 Assessment & Plan (1) Hyponatremia: Plan: * Clinical history consistent with SIADH. * Serum sodium improved to 131 mmol/dL this a.m. * Maintain 1.5 L daily fluid restriction. * Continue NaCl to 2 g p.o. twice daily * Urine osmolality remains inappropriately elevated at 427 * Continue Bumex 0.5 mg po BID * Monitor UO, BMP * If discharge is anticipated, please have patient follow up w/ Dr. Mcmillan in 7-14 days ([phone]) (2) CKD (chronic kidney disease) stage 3, GFR 30-59 ml/min: Plan: * CKD attributed to DKD and hypertension. Baseline creatinine 1.0-1.4 mg/dL. (3) Aortic stenosis: Plan: * Moderate. Cardiology evaluation reviewed. (4) Acute right otitis media: Plan: * Clinically improving. Remains on amoxicillin. Management per hospitalist. (5) Hypothyroidism: Plan: * TSH acceptable. Levothyroxine 200 mcg daily. Admission and Anticipated Discharge Date Admission Date: October 15, 2023 Subjective Mr. Olvera was evaluated in his hospital room this morning. His was present at bedside. Mr. Olvera voiced that he is tolerating oral sodium chloride without GI upset. He denies muscle cramping or orthostasis with low dose Bumex. Unfortunately UO has not been recorded. He is anxious to begin physical therapy Review of Systems Constitutional: no fever Eyes: no problem reported Ear, Nose, Mouth, Throat: no problem reported Respiratory: no cough and no dyspnea Cardiovascular: no chest pain Gastrointestinal: no abdominal pain, no nausea, no vomiting and no diarrhea/loose stools Genitourinary: no dysuria or no hematuria Integumentary: no rash Physical Exam Constitutional: not in distress Eyes: PERRL, conjunctivae normal, anicteric sclerae ENMT: external ear and nose normal, oropharynx normal Neck: trachea midline, no thyromegaly Respiratory: normal respiratory effort, lungs clear to auscultation Cardiovascular: RRR, no murmur, no edema Gastrointestinal (Abdomen): normal bowel sounds, soft, nontender, no hepatosplenomegaly Skin: no rashes, warm and dry Neurologic: Speech / Cognition: normal speech and normal cognition Results & Data Vital Signs (Past 12 Hours) Vital Signs Temp Pulse Pulse Resp BP BP Pulse Ox 10/19/23 08:04 36.7 C 66 17 125/72 98 10/19/23 07:32 56 L 10/19/23 04:32 36.4 C L 54 L 17 142/77 H 98 10/19/23 00:00 58 L 10/18/23 23:58 36.7 C 54 L 17 101/57 L 94 O2 Del Method 10/19/23 08:04 Room Air 10/19/23 07:32 10/19/23 04:32 Room Air 10/19/23 00:00 10/18/23 23:58 Room Air Laboratory Results Laboratory Results - last 24 hr 10/18/23 10/18/23 10/18/23 11:47 13:58 16:11 Sodium 126 L Potassium 4.0 Chloride 93 L Carbon Dioxide 25 Anion Gap 8 BUN 20 Creatinine 1.30 Est Cr Clr Drug Dosing 40.8 Est GFR ( Amer) 57.3 Est GFR (Non-Af Amer) 49.4 BUN/Creatinine Ratio 15.4 Glucose 118 H POC Glucose 156 H 93 Calcium 9.1 Vitamin B1 Urine Osmolality 10/18/23 10/19/23 10/19/23 21:04 05:53 07:40 Sodium 131 L Potassium 4.2 Chloride 96 L Carbon Dioxide 29 Anion Gap 6 BUN 20 Creatinine 1.27 Est Cr Clr Drug Dosing 41.8 Est GFR ( Amer) 58.9 Est GFR (Non-Af Amer) 50.8 BUN/Creatinine Ratio 15.7 Glucose 84 POC Glucose 125 H Calcium 9.0 Vitamin B1 Pending Urine Osmolality 427 L 10/19/23 08:04 Sodium Potassium Chloride Carbon Dioxide Anion Gap BUN Creatinine Est Cr Clr Drug Dosing Est GFR ( Amer) Est GFR (Non-Af Amer) BUN/Creatinine Ratio Glucose POC Glucose 91 Calcium Vitamin B1 Urine Osmolality PG Care Time/CCT Total # of Minutes Spent Total Time Spent with Patient: Total time spent is greater than 50% in coordination of care (as documented) at patient's floor/unit and/or counseling patient: Coding Level of Care Code 29479 SUB INP/OBS CARE 3/50MIN Diagnoses Hyponatremia E87.1 CKD (chronic kidney disease) stage 3, GFR 30-59 ml/min N18.3 Aortic stenosis I35.0 Acute right otitis media H66.91 Hypothyroidism E03.9
[2023-10-19] MEDS: THIAMINE HCL 100 MG TAB PO SCH (11:28)
--- NOTE | 2023-10-19 16:38 | CT Scan Report ---
CT chest diagnostic wo con CT DOSE: 432.38 mGy.cm HISTORY: RML nodule on prior CT (2019); SIADH; r/o lung ca TECHNIQUE: Multiaxial CT images of the chest were performed without contrast. A dose lowering techni que was utilized adhering to the principles of ALARA. COMPARISON: Chest CTA 02/17/2019. FINDINGS: Mild central bronchial wall thickening again noted. Otherwise, the central airways are morley nt. No pneumothorax. No pleural effusions. Peripheral densities within the lung bases remain stable a nd likely represent a combination of chronic interstitial change and dependent change/atelectasis. St able 4 mm nodule within the left lung base on image 135. There is a punctate calcified granuloma with in the base of the left lower lobe. Stable 3 mm subpleural nodule within the lingula on image 104. St able 3 mm subpleural nodule within the right upper lobe on image 90. Stable 12 mm lobular nodule with in the right middle lobe on image 136. No new focal lung consolidations to suggest a pneumonia. No ev idence for pulmonary edema. No new pulmonary nodules identified. Mild chronic anterior wedging within the T7 vertebral body. No acute fractures identified. Coarse calcifications seen within the right he patic lobe. The visualized spleen and adrenal glands are unremarkable. Normal esophagus. No mediastin al or hilar lymphadenopathy. Mild elevation of the left hemidiaphragm. The heart is mildly enlarged. No pericardial effusion. Mild calcified plaque within the normal caliber thoracic aorta. There are se tammy coronary artery calcifications present. IMPRESSION: 1. Stable pulmonary nodules with the dominant nodule on the right middle lobe measuring 12 mm. No new pulmonary nodules identified. 2. No lymphadenopathy within the chest. 3. Stable cardiomegaly. 4. Mild elevation of the left hemidiaphragm. ACT 112: Negative or not required by law. Electronically signed by: Иван Tabares M.D. 10/19/2023 4:37 PM
[2023-10-19] MEDS: LANTUS PER UNIT CHARGE SQ SCH (21:03)
[2023-10-19 21:38] VITALS: RESP 18
--- NOTE | 2023-10-19 23:42 | Hospitalist Progress Note ---
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 other etiology? of note -- recent TSH and cortisol both wnl patient continues to examine euvolemic obtained chest CT today given prior h/o pulmonary nodule -- no suspicious nodules/etc concerning for lung ca cont salt tab supplementation & fluid restriction cont bumex twice daily to promote free water excretion with the above his Na level improved to 131 this am, then dipped back to 127 this afternoon (some of which could be due to high glucose at noon-time today) appreciate Dr Hollis's assistance I corresponded with Dr Hollis - recommends ongoing fluid restriction, salt tabs, and bumex for now no tolvaptan given that the low sodium is mild repeat BMP am (2) Weakness: Plan: present on admission due to recent inner ear infection +/- middle ear infection (ie - AOM) , hyponatremia +/- mild orthostasis see "hyponatremia" above was orthostatic upon admission 10/13 and then again 10/14 orthostatic BP checks still mildly positive but no symptoms from such he denies dizziness he denies any lingering vertigo (had such last week at home) 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 statistically an inner ear infection caused by a virus would have been the culprit MRI brain did not show any acute or subacute CVA as the cause of his presentation B12 level in 03/2023 was borderline low - repeat level this admission wnl of note - placed on midodrine several days ago for orthostasis - cont for now cont PT/OT dispo - [facility] (3) Vertigo: Plan: statistically the vertigo was likely due to an acute viral vestibular neuronitis of the inner ear on the right given his age and multiple CVA risk factors, however, obtained MRI brain to r/o subacute brainstem stroke - MRI brain was neg for such fortunately the vertigo has resolved as of several days ago (4) Acute right otitis media: Plan: dx 10/09/23 at local urgent care completed 10 day course of amoxicillin for such I rechecked his ears over the weekend -- no residual acute inflammatory findings were seen There was some retraction of the right TM and probably some residual serous fluid as well but nothing inflammatory Cont karlee 60mg BID Cont nasocort 2 sprays daily (5) Elevated troponin: Plan: 21.9 on admission. Trop peaked at 26. CXR appears unchanged from last. ECG without ischemic changes, ECHO w/o WMAs and preserved EF Likely myocardial demand ischemia in the setting of his acute illness (6) Aortic stenosis: Plan: moderate on echo f/u with [facility] for routine surveillance (7) Diabetes mellitus type 2, insulin dependent: Plan: Home regimen -- lantus 40units BID and Metfomin 1000mg BID (held) Was receiving 30unit BID of lantus & developed hypoglycemia Thus, decreased lantus to 20 units BID, then 15 units BID Even on 15 units BID still with mildly low am readings -- reduce further to 12 units BID Cont novolog SSI of note - patient reports hypoglycemic episodes at home; likely needs decreased insulin at discharge (8) Pulmonary nodule 1 cm or greater in diameter: Plan: patient with h/o 12mm pulmonary nodule on right on previous CT chest several years ago. in light of SIADH elevated to perform non-contrast chest CT today. this showed that the pulmonary nodule is stable, and there are no new suspicious nodules. no evidence of any pneumonia either. Plan Chronic issues - * Hyperlipidemia - continue statin * Hypothyroid - TSH wnl; continue Synthroid * Factor V Leiden - no hsitory of DVT or PE, however, and he is not on chronic anticoagulation DVT proph - Lovenox SQ daily Dispo - [facility] Cont PT/OT Pt's daughter extensively updated by phone 10/17/23 Pt's daughter & updated at bedside today Admission and Anticipated Discharge Date Admission Date: October 15, 2023 Subjective tele overnight wnl patient feeling ok today denies any significant pain in his right ear no headache no other URI symptoms denies cough/dyspnea no orthopnea staff report he is eating fair-good no issues overnight - no major confusion/sundowning Review of Systems Review of Systems: gen - no fevers cv - no chest pain pulm - no cough, dyspnea, wheezing GI - no abd pain or N/V Physical Exam Physical Exam: gen - NAD, lying comfortably in bed, pleasant eyes - PERRL mouth - MMM heart - RRR, s1 s2, 2/6 holosystolic murmur RUSB lungs - CTA b/l abd - soft NT ND BS+ ext - no edema, pulses 2+ b/l Results & Data Results & Data Vital Signs (Past 12 Hours) Vital Signs Temp Pulse Pulse Resp BP BP Pulse Ox 10/19/23 21:45 10/19/23 21:37 36.6 C 66 18 116/69 97 10/19/23 19:46 36.5 C 60 19 106/57 L 95 10/19/23 16:22 36.4 C L 55 L 18 111/60 98 10/19/23 14:54 59 L 10/19/23 11:33 36.5 C 59 L 17 97/59 L 93 O2 Del Method 10/19/23 21:45 Room Air 10/19/23 21:37 Room Air 10/19/23 19:46 Room Air 10/19/23 16:22 Room Air 10/19/23 14:54 10/19/23 11:33 Room Air Laboratory Results Laboratory Results - last 24 hr 10/19/23 10/19/23 10/19/23 05:53 07:40 08:04 Sodium 131 L Potassium 4.2 Chloride 96 L Carbon Dioxide 29 Anion Gap 6 BUN 20 Creatinine 1.27 Est Cr Clr Drug Dosing 41.8 Est GFR ( Amer) 58.9 Est GFR (Non-Af Amer) 50.8 BUN/Creatinine Ratio 15.7 Glucose 84 POC Glucose 91 Calcium 9.0 Vitamin B1 Pending Urine Osmolality 427 L 10/19/23 10/19/23 10/19/23 11:32 12:40 16:25 Sodium 127 L Potassium Chloride Carbon Dioxide Anion Gap BUN Creatinine Est Cr Clr Drug Dosing Est GFR ( Amer) Est GFR (Non-Af Amer) BUN/Creatinine Ratio Glucose POC Glucose 170 H 99 Calcium Vitamin B1 Urine Osmolality Diagnostic Findings Chest CT 10/19/23 14:17 CT chest diagnostic wo con CT DOSE: 432.38 mGy.cm HISTORY: RML nodule on prior CT (2018); SIADH; r/o lung ca TECHNIQUE: Multiaxial CT images of the chest were performed without contrast. A dose lowering technique was utilized adhering to the principles of ALARA. COMPARISON: Chest CTA 02/17/2019. FINDINGS: Mild central bronchial wall thickening again noted. Otherwise, the central airways are patent. No pneumothorax. No pleural effusions. Peripheral densities within the lung bases remain stable and likely represent a combination of chronic interstitial change and dependent change/atelectasis. Stable 4 mm nodule within the left lung base on image 135. There is a punctate calcified granuloma within the base of the left lower lobe. Stable 3 mm subpleural nodule within the lingula on image 104. Stable 3 mm subpleural nodule within the right upper lobe on image 90. Stable 12 mm lobular nodule within the right middle lobe on image 136. No new focal lung consolidations to suggest a pneumonia. No evidence for pulmonary edema. No new pulmonary nodules identified. Mild chronic anterior wedging within the T7 vertebral body. No acute fractures identified. Coarse calcifications seen within the right hepatic lobe. The visualized spleen and adrenal glands are unremarkable. Normal esophagus. No mediastinal or hilar lymphadenopathy. Mild elevation of the left hemidiaphragm. The heart is mildly enlarged. No pericardial effusion. Mild calcified plaque within the normal caliber thoracic aorta. There are severe coronary artery calcifications present. IMPRESSION: 1. Stable pulmonary nodules with the dominant nodule on the right middle lobe measuring 12 mm. No new pulmonary nodules identified. 2. No lymphadenopathy within the chest. 3. Stable cardiomegaly. 4. Mild elevation of the left hemidiaphragm. ACT 112: Negative or not required by law. Electronically signed by: Иван Tabares M.D. 10/19/2023 4:37 PM PG Care Time/CCT Total # of Minutes Spent Total Time Spent with Patient: Total time spent is greater than 50% in coordination of care (as documented) at patient's floor/unit and/or counseling patient: Coding Level of Care Code 34733 SUB INP/OBS CARE 3/50MIN Diagnoses Hyponatremia E87.1 Weakness R53.1 Vertigo R42 Acute right otitis media H66.91 Elevated troponin R79.89 Aortic stenosis I35.0 Diabetes mellitus type 2, insulin dependent E11.9; Z79.4 Pulmonary nodule 1 cm or greater in diameter R91.1
[2023-10-20 06:39] LABS: BUN Creatinine Ratio 14.8 (10-20); Calcium 8.9 mg/dl (8.6-10.3); Creatinine Clr Calc Pharmacy 34.2 ml/min; Est GFR (African American) 46.3 ml/min; Est GFR (Non-African American) 39.9 ml/min; Magnesium 2.1 mg/dl (1.7-2.4)
--- NOTE | 2023-10-20 08:47 | Nephrology Progress Note ---
Date of Service October 20, 2023 Assessment & Plan (1) Hyponatremia: Plan: * Clinical history consistent with SIADH. * Serum sodium improved to 133 mmol/dL this a.m. * Maintain 1.5 L daily fluid restriction. * Continue NaCl to 2 g p.o. twice daily * Creatinine mildly increased to 1.5. Will reduce Bumex to 0.5 mg po qAM * Monitor UO, BMP * In anticipation of transfer to [facility], I have asked my evp and chief operating officer staff to contact patient's and schedule hospital follow up w/ Dr. Mcmillan in 2-3 weeks. Patient will need to have nonfasting labs completed 1-2 days prior to visit. Orders are active in EMR (2) CKD (chronic kidney disease) stage 3, GFR 30-59 ml/min: Plan: * CKD attributed to DKD and hypertension. Baseline creatinine 1.0-1.4 mg/dL. (3) Aortic stenosis: Plan: * Moderate. Cardiology evaluation reviewed. (4) Acute right otitis media: Plan: * Clinically improving. Remains on amoxicillin. Management per hospitalist. (5) Hypothyroidism: Plan: * TSH acceptable. Levothyroxine 200 mcg daily. Admission and Anticipated Discharge Date Admission Date: October 15, 2023 Subjective Mr. Olvera was evaluated in his hospital room this morning. His was present at bedside. Mr. Olvera voiced that he is tolerating oral sodium chloride without GI upset. He denies muscle cramping or orthostasis with low dose Bumex. He is anxious to begin physical therapy Review of Systems Constitutional: no fever Eyes: no problem reported Ear, Nose, Mouth, Throat: no problem reported Respiratory: no cough and no dyspnea Cardiovascular: no chest pain Gastrointestinal: no abdominal pain, no nausea, no vomiting and no diarrhea/loose stools Genitourinary: no dysuria or no hematuria Integumentary: no rash Physical Exam Constitutional: not in distress Eyes: PERRL, conjunctivae normal, anicteric sclerae ENMT: external ear and nose normal, oropharynx normal Neck: trachea midline, no thyromegaly Respiratory: normal respiratory effort, lungs clear to auscultation Cardiovascular: RRR, no murmur, no edema Gastrointestinal (Abdomen): normal bowel sounds, soft, nontender, no hepatosplenomegaly Skin: no rashes, warm and dry + turgor decreased Neurologic: Speech / Cognition: normal speech and normal cognition Results & Data Vital Signs (Past 12 Hours) Vital Signs Temp Pulse Pulse Pulse Resp BP Pulse Ox 10/20/23 07:21 36.7 C 98 H 71 18 104/61 98 10/20/23 02:38 36.6 C 55 L 18 105/62 97 10/19/23 21:45 10/19/23 21:37 36.6 C 66 18 116/69 97 10/19/23 21:35 66 O2 Del Method 10/20/23 07:21 Room Air 10/20/23 02:38 Room Air 10/19/23 21:45 Room Air 10/19/23 21:37 Room Air 10/19/23 21:35 Diagnostic Findings Laboratory Results - last 24 hr 10/19/23 10/19/23 10/19/23 11:32 12:40 16:25 Sodium 127 L Potassium Chloride Carbon Dioxide Anion Gap BUN Creatinine Est Cr Clr Drug Dosing Est GFR ( Amer) Est GFR (Non-Af Amer) BUN/Creatinine Ratio Glucose POC Glucose 170 H 99 Calcium Magnesium 10/19/23 10/20/23 10/20/23 19:49 05:52 08:04 Sodium 133 L Potassium 4.0 Chloride 99 Carbon Dioxide 28 Anion Gap 6 BUN 23 Creatinine 1.55 H Est Cr Clr Drug Dosing 34.2 Est GFR ( Amer) 46.3 Est GFR (Non-Af Amer) 39.9 BUN/Creatinine Ratio 14.8 Glucose 97 POC Glucose 152 H 124 H Calcium 8.9 Magnesium 2.1 10/19/[address]: 1. Stable pulmonary nodules with the dominant nodule on the right middle lobe measuring 12 mm. No new pulmonary nodules identified. 2. No lymphadenopathy within the chest. 3. Stable cardiomegaly. 4. Mild elevation of the left hemidiaphragm. PG Care Time/CCT Total # of Minutes Spent Total Time Spent with Patient: Total time spent is greater than 50% in coordination of care (as documented) at patient's floor/unit and/or counseling patient: Coding Level of Care Code 75662 SUB INP/OBS CARE 3/50MIN Diagnoses Hyponatremia E87.1 CKD (chronic kidney disease) stage 3, GFR 30-59 ml/min N18.3 Aortic stenosis I35.0 Acute right otitis media H66.91 Hypothyroidism E03.9
[2023-10-20] MEDS: BUMETANIDE 1 MG TAB PO SCH (09:30)
--- NOTE | 2023-10-20 15:06 | Hospitalist Progress Note ---
Date of Service October 20, 2023 Assessment & Plan (1) Hyponatremia: Plan: 88 y/o man admitted with lightheadedness and hyponatremia. Recently under treatment for otitis media. Found to have hyponatremia with robina of 126. Urine sodium inappropriately elevated at 76 with dilute urine and normal volume status, consistent with SIADH of unknown trigger, potentially viral ear infection. Also had symptomatic orthostatic hypotension. recent TSH and cortisol both wnl Chest CT showed stable/chronic RML nodules, unremarkable otherwise improved on salt tabs, fluid restriction and bumex twice daily to promote free water excretion Sodium improved to 133 AM BMP then weekly as outpatient (2) Weakness: Plan: present on admission due to recent inner ear infection +/- middle ear infection (ie - AOM) , hyponatremia +/- mild orthostasis MRI brain did not show any acute or subacute CVA as the cause of his presentation orthostasis persists but asymptomatic at this time stop midodrine and reduce metoprolol to 25 mg bid PT/OT (3) Vertigo: Plan: statistically the vertigo was likely due to an acute viral vestibular neuronitis of the inner ear on the right given his age and multiple CVA risk factors, however, obtained MRI brain to r/o subacute brainstem stroke - MRI brain was neg for such -resolved several days ago (4) Acute right otitis media: Plan: dx 10/09/23 at local urgent care completed 10 day course of amoxicillin for such no residual acute inflammatory findings were seen on ear exam over the weekend There was some retraction of the right TM and probably some residual serous fluid as well but nothing inflammatory Cont karlee 60mg BID Cont nasocort 2 sprays daily (5) Elevated troponin: Plan: 21.9 on admission. Trop peaked at 26. CXR appears unchanged from last. ECG without ischemic changes, ECHO w/o WMAs and preserved EF Likely myocardial demand ischemia in the setting of his acute illness, no evidence of ACS (6) Aortic stenosis: Plan: moderate on echo f/u with [facility] for routine surveillance (7) Diabetes mellitus type 2, insulin dependent: Plan: Home regimen -- lantus 40units BID and Metfomin 1000mg BID (held) Was receiving 30unit BID of lantus & developed hypoglycemia Thus, decreased lantus to 20 units BID, then 15 units BID Even on 15 units BID still with mildly low am readings -- reduce further to 12 units BID Cont novolog SSI - at goal 10/19 of note - patient reports hypoglycemic episodes at home; likely needs decreased insulin at discharge (8) Pulmonary nodule 1 cm or greater in diameter: Plan: patient with h/o 12mm pulmonary nodule on right on previous CT chest several years ago. stable on repeat chest CT this admission Plan Chronic issues - * Hyperlipidemia - continue statin * Hypothyroid - TSH wnl; continue Synthroid * Factor V Leiden - no hsitory of DVT or PE, however, and he is not on chronic anticoagulation * CKD stage 3 DVT proph - Lovenox SQ daily Dispo - [facility] vs home with home health, OT still rec rehab. PT reeval pending Pt's daughter & updated at bedside 10/19 Admission and Anticipated Discharge Date Admission Date: October 15, 2023 Subjective right is feeling better he was not lightheaded with standing however RN reported positive orthostatic vital signs which I am unable to see the exact numbers in the chart He did much better with OT walked 100 feet with a walker he does not usually use a walker or cane at home he was too tired when PT came this morning Physical Exam 2 Physical Exam: PHYSICAL EXAMINATION Last 24h vital signs reviewed, see documentation in flowsheet General: comfortable appearing, no distress HEENT: Normocephalic, atraumatic, pupils round and equal, sclerae anicteric, no conjunctival injection, moist mucus membranes Lungs: Normal respiratory effort. Clear to auscultation bilaterally. No RRW Heart: Regular rate and rhythm, no murmurs. No JVD Abdomen: Soft, nontender, nondistended. Bowel sounds present. Extremities: Warm, dry, well-perfused. No extremity edema. Neuro: Alert and oriented x 4, face symmetric, moves 4 extremities well Psych: Normal affect and behavior Results & Data Results & Data Vital Signs (Past 12 Hours) Vital Signs Temp Pulse Pulse Pulse Resp BP Pulse Ox 10/20/23 14:18 62 10/20/23 11:21 36.6 C 53 L 18 103/66 96 10/20/23 10:39 10/20/23 09:55 57 L 10/20/23 07:21 36.7 C 98 H 71 18 104/61 98 O2 Del Method 10/20/23 14:18 10/20/23 11:21 Room Air 10/20/23 10:39 Room Air 10/20/23 09:55 10/20/23 07:21 Room Air Laboratory Results 10/17/23 05:55 10/20/23 05:52 PG Care Time/CCT Total # of Minutes Spent Total Time Spent with Patient: Total time spent is greater than 50% in coordination of care (as documented) at patient's floor/unit and/or counseling patient: Coding Level of Care Code 85782 SUB INP/OBS CARE 2/35MIN Diagnoses Hyponatremia E87.1 Weakness R53.1 Vertigo R42 Acute right otitis media H66.91 Elevated troponin R79.89 Aortic stenosis I35.0 Diabetes mellitus type 2, insulin dependent E11.9; Z79.4 Pulmonary nodule 1 cm or greater in diameter R91.1
[2023-10-21 06:55] LABS: Hematocrit (blood only) 33.4 % (42.0-52.0); Hemoglobin 11.4 g/dl (14.0-18.0); Mean Corpuscular Hemoglobin 29.7 pg (25.0-34.0); Mean Corpuscular Hgb Conc 34.1 g/dL (32.0-36.0); Mean Platelet Volume 10.2 fL (9.4-12.4); Platelet Count 280 K/uL (130-400); RDW Coefficient of Variation 13.4 % (11.5-14.5); RDW Standard Deviation 42.5 fL (36.4-46.3); Red Blood Count 3.84 M/uL (4.70-6.10); White Blood Count 6.25 K/ul (4.8-10.8)
[2023-10-21 07:15] LABS: BUN Creatinine Ratio 16.4 (10-20); Calcium 8.9 mg/dl (8.6-10.3); Creatinine Clr Calc Pharmacy 39.6 ml/min; Est GFR (African American) 55.2 ml/min; Est GFR (Non-African American) 47.6 ml/min; Potassium 4.1 mmol/L (3.5-5.1)
[2023-10-21 07:34] VITALS: TEMP 98.1; O2SAT 96
[2023-10-21] MEDS: METOPROLOL TARTRATE 25 MG TAB PO SCH (07:47)
--- NOTE | 2023-10-21 08:52 | Nephrology Progress Note ---
Date of Service October 21, 2023 Assessment & Plan (1) Hyponatremia: Plan: * Clinical history consistent with SIADH. * Serum sodium improved to 134 mmol/dL this a.m. * Maintain 1.5 L daily fluid restriction. * Continue NaCl to 2 g p.o. twice daily * Continue Bumex 0.5 mg po qAM * Monitor UO, BMP * In anticipation of transfer to [facility], I have asked my nuclear medicine officer staff to contact patient's and schedule hospital follow up w/ Dr. Mcmillan in 2-3 weeks. Patient will need to have nonfasting labs completed 1-2 days prior to visit. Orders are active in EMR (2) CKD (chronic kidney disease) stage 3, GFR 30-59 ml/min: Plan: * CKD attributed to DKD and hypertension. Baseline creatinine 1.0-1.4 mg/dL. (3) Aortic stenosis: Plan: * Moderate. Cardiology evaluation reviewed. (4) Acute right otitis media: Plan: * Clinically improving. Remains on amoxicillin. Management per hospitalist. (5) Hypothyroidism: Plan: * TSH acceptable. Levothyroxine 200 mcg daily. Admission and Anticipated Discharge Date Admission Date: October 15, 2023 Subjective Mr. Olvera was evaluated in his hospital room this morning. He was alert and oriented to self, place. He reported walking a short distance w/ PT in the hallway this am Review of Systems Constitutional: no fever Eyes: no problem reported Ear, Nose, Mouth, Throat: no problem reported Respiratory: no cough and no dyspnea Cardiovascular: no chest pain Gastrointestinal: no abdominal pain, no nausea, no vomiting and no diarrhea/loose stools Genitourinary: no dysuria or no hematuria Integumentary: no rash Physical Exam Constitutional: not in distress Eyes: PERRL, conjunctivae normal, anicteric sclerae ENMT: external ear and nose normal, oropharynx normal Neck: trachea midline, no thyromegaly Respiratory: normal respiratory effort, lungs clear to auscultation Cardiovascular: RRR, no murmur, no edema Gastrointestinal (Abdomen): normal bowel sounds, soft, nontender, no hepatosplenomegaly Skin: no rashes, warm and dry + turgor decreased Neurologic: Speech / Cognition: normal speech and normal cognition Results & Data Vital Signs (Past 12 Hours) Vital Signs Temp Pulse Pulse Resp BP BP Pulse Ox 10/21/23 07:33 36.7 C 77 18 139/76 96 10/21/23 07:13 71 10/21/23 03:38 36.6 C 70 18 121/64 93 10/21/23 00:46 60 10/21/23 00:12 37.0 C 71 18 107/64 97 O2 Del Method 10/21/23 07:33 Room Air 10/21/23 07:13 10/21/23 03:38 Room Air 10/21/23 00:46 10/21/23 00:12 Room Air Laboratory Results Laboratory Results - last 24 hr 10/20/23 10/20/23 10/20/23 12:00 16:30 21:08 WBC RBC Hgb Hct MCV MCH MCHC RDW Std Deviation RDW Coeff of Stacia Plt Count MPV Sodium Potassium Chloride Carbon Dioxide Anion Gap BUN Creatinine Est Cr Clr Drug Dosing Est GFR ( Amer) Est GFR (Non-Af Amer) BUN/Creatinine Ratio Glucose POC Glucose 191 H 111 H 201 H Calcium 10/21/23 10/21/23 06:16 07:51 WBC 6.25 RBC 3.84 L Hgb 11.4 L Hct 33.4 L MCV 87.0 MCH 29.7 MCHC 34.1 RDW Std Deviation 42.5 RDW Coeff of Stacia 13.4 Plt Count 280 MPV 10.2 Sodium 134 L Potassium 4.1 Chloride 99 Carbon Dioxide 28 Anion Gap 7 BUN 22 Creatinine 1.34 Est Cr Clr Drug Dosing 39.6 Est GFR ( Amer) 55.2 Est GFR (Non-Af Amer) 47.6 BUN/Creatinine Ratio 16.4 Glucose 120 H POC Glucose 120 H Calcium 8.9 PG Care Time/CCT Total # of Minutes Spent Total Time Spent with Patient: Total time spent is greater than 50% in coordination of care (as documented) at patient's floor/unit and/or counseling patient: Coding Level of Care Code 63300 SUB INP/OBS CARE 3/50MIN Diagnoses Hyponatremia E87.1 CKD (chronic kidney disease) stage 3, GFR 30-59 ml/min N18.3 Aortic stenosis I35.0 Acute right otitis media H66.91 Hypothyroidism E03.9
[2023-10-21 10:16] VITALS: BP 107/64; PULSE 98
--- NOTE | 2023-10-21 18:28 | Discharge Summary ---
Discharge Summary Date of Service October 21, 2023 Principal Dx & Hospital Course #1 = Principal Diagnosis (1) Hyponatremia: 88 y/o man admitted with lightheadedness and hyponatremia. Recently under treatment for otitis media. Found to have hyponatremia with robina of 126. Urine sodium inappropriately elevated at 76 with dilute urine and normal volume status, consistent with SIADH of unknown trigger, potentially viral ear infection. Also had symptomatic orthostatic hypotension. 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 Vora and primary care follow-up with Dr. Mcmillan in 2-3 weeks (2) Weakness: present on admission due to recent inner ear infection +/- middle ear infection (ie - AOM) , hyponatremia +/- mild orthostasis MRI brain did not show any acute or subacute CVA as the cause of his presentation he had some orthostatic hypotension, improved reduced metoprolol to 25 mg bid originally plan to discharge to [facility] for acute rehab but did so well with PT and OT last 48 hours that he was able to discharge home with home health which he preferred strongly (3) Vertigo: statistically the vertigo was likely due to an acute viral vestibular neuronitis of the inner ear on the right given his age and multiple CVA risk factors, however, obtained MRI brain to r/o subacute brainstem stroke - MRI brain was neg for such -resolved several days ago (4) Acute right otitis media: dx 10/09/23 at local urgent care completed 10 day course of amoxicillin for such no residual acute inflammatory findings were seen on ear exam over the weekend There was some retraction of the right TM and probably some residual serous fluid as well but nothing inflammatory Cont karlee 60mg BID Cont nasocort 2 sprays daily (5) Elevated troponin: 21.9 on admission. Trop peaked at 26. CXR appears unchanged from last. ECG without ischemic changes, ECHO w/o WMAs and preserved EF Likely myocardial demand ischemia in the setting of his acute illness, no evidence of ACS (6) Aortic stenosis: moderate on echo f/u with [facility] for routine surveillance (7) Diabetes mellitus type 2, insulin dependent: Home regimen -- lantus 40units BID and Metfomin 1000mg BID (held) had hypoglycemia even with dose reduction to 15 units of glargine twice daily while in hospital, on hospital diet has had hypoglycemia at home therefore reduce glargine to 30 units twice daily, does have CGM (8) Pulmonary nodule 1 cm or greater in diameter: patient with h/o 12mm pulmonary nodule on right on previous CT chest several years ago. 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 vitamin B1 level is pending, he is on daily vitamin B supplement Medication Changes From Visit reduce glargine to 30 units twice daily, added sodium chloride tablets twice daily, added bumetanide 0.5 mg daily metoprolol reduced to 25 mg twice daily because of low blood pressure and symptomatic orthostatic hypotension Admission HPI Per Admitting Provider Rob is an 88-year-old man with a past medical history of type 2 diabetes with CKD 3, hypertension, hypothyroidism, hyperlipidemia, asthma, BPH, and moderate aortic valve stenosis who presented to the ER with a complaint of weakness and dizziness x 10 days continued worsening x 5 days despite antibiotic therapy. Patient presented to [facility] 5 days ago (10/08) with a complaint of right ear fullness he was diagnosed with acute otitis media and sent home on amoxicillin 875 mg twice daily x 10 days and prednisone 20 mg daily x 3 days. He took the antibiotics as prescribed, but continued to grow weaker and more dizzy over the following 5 days. When he woke up this morning, he reports feeling "noticeably weaker than the day before." When asked to specify, he describes "struggling to move my legs." He denies fever, chills, shortness of breath, headache, confusion, dysuria, increased urinary frequency, diminished appetite, constipation, diarrhea, abdominal pain, or recent fall/trauma. In the ER, vitals were stable, within normal limits. Labs were notable for Na- 128, BSG-168, Hgb-12.1, and yy-idwvafyo-86.9. WBC (9.01) was normal, as were his electrolytes, and the respiratory biofire panel. He received a 1 L NS bolus the hospitalist service was then consulted for admission. On admission, he corroborates HPI. ROS + nausea, chest congestion. Otherwise, ROS +/- as above. Discharge Exam PHYSICAL EXAMINATION Last 24h vital signs reviewed, see documentation in flowsheet General: comfortable appearing, no distress exam unchanged 10/20 HEENT: Normocephalic, atraumatic, pupils round and equal, sclerae anicteric, no conjunctival injection, moist mucus membranes Lungs: Normal respiratory effort. Clear to auscultation bilaterally. No RRW Heart: Regular rate and rhythm, systolic murmur. No JVD Abdomen: Soft, nontender, nondistended. Bowel sounds present. Extremities: Warm, dry, well-perfused. No extremity edema. Neuro: Alert and oriented x 4, face symmetric, moves 4 extremities well Psych: Normal affect and behavior Updated Medication List Medication Instructions Recorded Confirmed Type cinnamon bark 500 mg capsule 500 mg PO BID 10/25/18 10/13/23 History (Cinnamon) omega-3 fatty acids 1,000 mg 1,200 mg PO QAM 10/25/18 10/13/23 History capsule desonide 0.05 % topical ointment 1 appln topical BID PRN Skin 02/16/19 10/13/23 History Irritation #1 g albuterol sulfate 90 mcg/actuation 2 puffs inhalation Q6H PRN 02/17/19 10/13/23 Rx aerosol inhaler (Ventolin HFA) shortness of breath or wheezing #8 grams aspirin 81 mg tablet,delayed 81 mg PO QAM 02/17/19 10/13/23 History release blood sugar diagnostic (YonesTouch #100 ea 10/29/21 09/29/23 Rx Ultra Test strips) blood-glucose meter (YonesTouch #1 ea 10/29/21 09/29/23 Rx Ultra2 Meter kit) lancets (YonesTouch UltraSoft #100 ea 10/29/21 09/29/23 Rx Lancets) ascorbic acid (vitamin C) 1,000 mg 1,000 mg PO QAM 03/24/22 10/13/23 History tablet,extended release (Vitamin C ER) blood-glucose sensor (Dexcom G7 #1 ea 06/30/22 09/29/23 Rx Sensor device) blood-glucose meter,continuous #1 ea 08/07/22 09/29/23 Rx (Dexcom G7 [employer]) levothyroxine 200 mcg tablet 200 mcg PO DAILY #30 tabs 10/31/22 10/13/23 Rx rosuvastatin 10 mg tablet 5 mg PO DAILY 01/06/23 10/13/23 History metformin 1,000 mg tablet 1,000 mg PO BID #180 tabs 08/05/23 10/13/23 Rx clotrimazole-betamethasone 1 1 applic topical HS 10/13/23 10/13/23 History %-0.05 % topical cream vitamin B complex 1 tab PO DAILY 10/13/23 10/13/23 History bumetanide 1 mg tablet 0.5 mg (1/2 x 1 mg) PO QAM #14 tabs 10/21/23 Rx fexofenadine 60 mg tablet (Wal-Fex 60 mg PO BID #0 tabs 10/21/23 Rx Allergy) fluticasone propionate 50 2 spray ZACHERY DAILY #0 grams 10/21/23 Rx mcg/actuation nasal spray,suspension insulin glargine 100 unit/mL (3 30 unit (0.3 mL) subcut BID #3 mL 10/21/23 Rx mL) subcutaneous pen (Lantus Solostar U-100 Insulin) metoprolol tartrate 25 mg tablet 25 mg PO BID #60 tabs 10/21/23 Rx sodium chloride 1,000 mg soluble 2,000 mg (2 x 1,000 mg) PO BID 10/21/23 Rx tablet #120 tabs Hospital Stay Data Consultations 10/13/23 23:33 ED Decision to Admit Stat 10/16/23 11:09 Consult Nephrology Routine Diagnostic Imagining Performed 10/17/23 13:38 MR brain wo con Routine 10/19/23 14:17 CT chest diagnostic wo con Routine Chest X-Ray 10/13/23 21:47 XR chest 1V portable CLINICAL HISTORY: weakness TECHNIQUE: Single frontal radiograph of the chest was obtained. Comparison: Comparison is made to chest radiograph 08/24/2023 FINDINGS: No lines and tubes are seen. Calcified aortic knob is seen. The lungs are clear. No evidence of pleural effusion or pneumothorax. Skinfolds are noted on the right. IMPRESSION: No acute chest disease. ACT 112: Negative or not required by law. Electronically signed by: Jimmie Andrade M.D. 10/14/2023 8:09 AM Brain MRI 10/17/23 13:38 MR brain wo con CLINICAL HISTORY: recent vertigo, LE weakness; eval subacute CVA TECHNIQUE: Multiplanar and multisequence MR images of the brain were obtained without intravenous contrast. Comparison: None available at the time of this dictation. FINDINGS: No abnormal restricted diffusion is identified. Foci of T2 and FLAIR hyperintensity are noted in the paraventricular areas consistent with chronic small vessel ischemic disease. Ex vacuo ventriculomegaly and sulcal enlargement is noted compatible with diffuse volume loss. No mass is seen. There is no mass effect or midline shift. There is no evidence of acute intraparenchymal hemorrhage. No extra axial fluid collections are seen. The corpus callosum, pituitary gland, and cerebellar tonsils appear grossly unremarkable. Flow voids of the major intracranial arterial vessels are identified. The imaged portions of the paranasal sinuses, mastoid air cells, and orbits are unremarkable. IMPRESSION: No acute abnormality and in particular no evidence of acute infarct. ACT 112: Negative or not required by law. Electronically signed by: Jimmie Andrade M.D. 10/17/2023 3:26 PM Orbit X-Ray 10/17/23 14:02 XR orbits for MRI CLINICAL HISTORY: Screening for foreign body for MRI TECHNIQUE: AP and lateral views of the orbits were submitted for interpretation. Comparison: None available at the time of this dictation. FINDINGS/IMPRESSION: There are no radiopaque metallic foreign bodies. The osseous structures are unremarkable. Patient is cleared for MRI. ACT 112: Negative or not required by law. Electronically signed by: Jimmie Andrade M.D. 10/17/2023 2:[address] 10/19/23 14:17 CT chest diagnostic wo con CT DOSE: 432.38 mGy.cm HISTORY: RML nodule on prior CT (2018); SIADH; r/o lung ca TECHNIQUE: Multiaxial CT images of the chest were performed without contrast. A dose lowering technique was utilized adhering to the principles of ALARA. COMPARISON: Chest CTA 02/17/2019. FINDINGS: Mild central bronchial wall thickening again noted. Otherwise, the central airways are patent. No pneumothorax. No pleural effusions. Peripheral densities within the lung bases remain stable and likely represent a combination of chronic interstitial change and dependent change/atelectasis. Stable 4 mm nodule within the left lung base on image 135. There is a punctate calcified granuloma within the base of the left lower lobe. Stable 3 mm subpleural nodule within the lingula on image 104. Stable 3 mm subpleural nodule within the right upper lobe on image 90. Stable 12 mm lobular nodule within the right middle lobe on image 136. No new focal lung consolidations to suggest a pneumonia. No evidence for pulmonary edema. No new pulmonary nodules identified. Mild chronic anterior wedging within the T7 vertebral body. No acute fractures identified. Coarse calcifications seen within the right hepatic lobe. The visualized spleen and adrenal glands are unremarkable. Normal esophagus. No mediastinal or hilar lymphadenopathy. Mild elevation of the left hemidiaphragm. The heart is mildly enlarged. No pericardial effusion. Mild calcified plaque within the normal caliber thoracic aorta. There are severe coronary artery calcifications present. IMPRESSION: 1. Stable pulmonary nodules with the dominant nodule on the right middle lobe measuring 12 mm. No new pulmonary nodules identified. 2. No lymphadenopathy within the chest. 3. Stable cardiomegaly. 4. Mild elevation of the left hemidiaphragm. ACT 112: Negative or not required by law. Electronically signed by: Иван Tabares M.D. 10/19/2023 4:37 PM 10/21/23 06:16 10/21/23 06:16 Pending Results Patient Have Any Pending Studies at Discharge: Yes (B1 (thiamine) level) Discharge Instructions Given to Patient (Per Discharging Provider) You were treated for low blood sodium and also low blood pressure when standing The low blood sodium was treated with the following: -salt tablets -max of 1500 mL of fluids per day -low dose diuretic (bumetanide) -once or twice daily protein shake will also help this problem -I asked home health to check your labs weekly for a few weeks -follow up with Dr. Mcmillan Your standing BP was dropping a lot, I reduced your metoprolol dose -follow up with Dr. Fonseca as scheduled The vertigo (spinning sensation) seems to have been related to the ear infection -continue karlee and nasocort You are having low blood sugar episodes on your home amount of insulin -decrease the glargine to 30 units twice a day and follow up in primary care -call if you have BG <70 more than once, or if you are running consistently too high (>200) Total Time Total Time Spent Total Time Spent (In Minutes): I personally spent: 40 minutes today on clinical care activities including: reviewing chart notes and vital signs reviewing labs discussion with critical care educator, writing prescriptions for home health examining and counseling the patient writing orders, prescriptions and discharge instructions documentation Coding Level of Care Code 11313 INP/OBS DISCH >30 MIN Diagnoses Hyponatremia E87.1 Weakness R53.1 Vertigo R42 Acute right otitis media H66.91 Elevated troponin R79.89 Aortic stenosis I35.0 Diabetes mellitus type 2, insulin dependent E11.9; Z79.4 Pulmonary nodule 1 cm or greater in diameter R91.1 Home Health Attestation I certify that this patient is under my care and that I, or a physicians high school assistant principal working with me, had a face to-face encounter that meets the home health [id number] encounter requirements with this patient. The encounter with the patient was in whole, or in part, for the following medical condition, which is the primary reason for home health care (list medical condition): hyponatremia, ambulatory dysfunction, orthostatic hypotension I certify that, based on my findings, the following services are medically necessary home health services: My clinical findings support the need for the above services because: Home Safety Assessment Hydration / Nutrition Medication Compliance and Monitoring Effective of New Medications Medication Compliance OT Assess ADL Status and Restore Function w ADLs PT Assessment for Endurance / Balance / Strength PT Eval for Safety and Mobility PT Eval for Safety, Gait Training, Assistive Devices PT Gait and Balance Training, Strengthening and Safety Safety Skilled Nsg Assessment Skilled Nsg Assess and Instruct on Diet Skilled Nsg Instruction New Medications Skilled Nsg Assess Pt Illness, Disease and Sx Monitoring S/S to Report to Provider Teach on Disease Management and Interventions Weekly Labs Further, I certify that my clinical findings support that this patient is homebound (i.e. absences from home require considerable and taxing effort and are for medical reasons or confucianist services or infrequently or of short duration when for other reasons) because: Supportive Aid - Walker Certification for Home Health Services: Based on the above findings, I certify that this patient is confined to the home and needs intermittent fci care, physical therapy and/or speech therapy or continues to need occupational therapy. The patient is under my care, and I have initiated the establishment of the plan of care. This patient will be followed by a physician who will periodically review the plan of care.
== END 2023-10-21 15:05 | disposition home health service (06) | DRG 643 ==
LOC: ED 21:05 → EDINP 21:05 → SUATTDRO 10-14 00:56 → 3N 10-14 01:44 → SUATTDRO 10-15 12:34 → 4W 10-16 22:41 → 2N 10-19 21:32